=== PATIENT | male | born 1965 | race Hispanic/Latino ===

== ENCOUNTER 2024-06-06 17:52 | Inpatient (IN) | payer MEDICAID, OTHER, SELFPAY ==
[2024-06-06] VITALS (10 sets, daily range): BP systolic 117–149; BP diastolic 62–91; BMI 45.1; BMI 44.4
[2024-06-06] MEDS: NSS 1000 IV (12:19)
[2024-06-06] MEDS: TORADOL 30 MG IV (12:19)
--- NOTE | 2024-06-06 12:20 | ED.GENMED ---
History of Present Illness
General
Chief Complaint: Headache
Time Seen by Provider: 06/06/24 11:14
History of Present Illness
History of Present Illness:
[place] Language Line [id number] (Clair) used for interpretation
58 year old male with no significant PMH presenting to the ER for evaluation of headache, body shaking, coldness sensation, bilateral ear fullness, and fatigue x 1 week. Symptoms unchanged today but no improvement with tylenol. No documented fevers,
no known sick contacts, recent travel or abx. No history of similar. Family had started mentioning GI work up and that patient had endoscopy and colonoscopy in the past and were supposed to get labs done but patient never got these. Patient without
any GI specific concern today however
Past History
Past History
ED Past Medical History: None
ED Past Surgical History: None
Social History
Tobacco: Non-smoker
Alcohol: None
Drug: None
Personal:
Living: with family
Review of Systems
Review of Systems
All Other Systems: ROS reviewed and negative except as documented in HPI and ROS
Phy Exam
Physical Exam
Physical Exam:
GENERAL: Alert , in no apparent distress
EYE: clear conjunctiva
NECK: Supple
ENT: o/p clr, mmm. TM clear bilateral, small cerumen bilateral
CARDIAC: Regular rate and rhythm .
LUNGS: Clear breath sounds bilaterally, no acute respiratory distress, no wheezes/rales/rhonchi
ABDOMEN: Soft, somwhat distended, without focal tenderness, no r/g, no cvat
NEUROLOGICAL: Alert and oriented
SKIN: Warm and dry, skin intact.
MUSCULOSKELETAL: No edema, well perfused.
PSYCH: Normal and appropriate interaction.
Scores
Heart Failure Risk
Heart Failure Risk Score: Not Applicable
Heart Score for Chest Pain Patients
STEMI patient?: Not applicable
Withdrawal Assessment of Alcohol
Withdrawal Assessment Completed?: Not applicable
Course
Orders/Labs/Results
Orders:
Orders
06/06/24 Breakfast
NPO
Allow oral meds: Yes
Allow clear liquids: Sips of Clears
NPO with Ice Chips: Yes
06/06/24 11:39
0.9% Sodium Chloride 1000 ml [Nss] 1,000 ml IV BOLUS
Ketorolac [Toradol] 30 mg IV NOW STA
06/06/24 12:08
Alcohol Urgent
C-Reactive Protein Urgent
Comment: ADDON
Complete Blood Count/With Diff Urgent
Comprehensive Metabolic Panel Urgent
Lipase Urgent
Comment: ADD ON
Influenza A+B Rapid Molecular Urgent
BENEDICT Source: Nasal Swab
Specimen Description:
06/06/24 12:09
COVID-19 Antigen Urgent
Source: Nasal Swab
Lactic Acid Q4H
Comment: CANCEL 2nd LACTIC ACID IF 1st LACTIC ACID IS LESS THAN 2
Urinalysis Reflex To Culture Urgent
Date Specimen was Collected: 06/06/24
Time Specimen was Collected: 11:56
Urine Microscopic Reflex Cult Urgent
06/06/24 13:12
US Abdomen Complete/Upper Urgent
Comment:
Reason For Exam: elevated LFTs
06/06/24 Dinner
Cholesterol Lowering
At Your Request: Full Participation
Does patient need a safe tray?: No
Cholesterol Lowering: Sodium, 2 Gram
06/06/24 16:54
Add On- LAB Routine
Tests Added?: CRP
06/06/24 17:13
Stool Culture Routine
BENEDICT Source: Feces/Stool
Specimen Description:
06/06/24 17:19
Admit/Transfer Patient As Directed
Co-Sign Provider:
Level of Care: Inpatient admission
Assign to:: Telemetry
Physician / Group: Ilya/hospitalist
Diagnosis: RUQ/epigastric pain
Reason for Telemetry: Arrhythmia
Date to Stop Telemetry: 06/09/24
Time to Stop Telemetry: 11:00
Reason for Hospitalization: RUQ/epigastric pain
Expected length of stay greater than two midnights?: Yes
ELOS- Estimated Length of Stay in days: 5
I certify the patient meets the requirements for IP care: Yes
PRN Pain Medication Management As Directed
May give lesser potent ordered pain med per pt: Yes
preference::
Protocol:: Medication orders for pain may be administered in a
manner that supports deferring to patient preference
when the pt is:
- Requesting an ordered lesser potent pain medication.
Least to most potent pain medications are defined
as: acetaminophen < NSAID < tramadol < opioids
(morphine, oxycodone, hydromorphone).
- Requesting a lesser dose of the same medication IF
ORDERED.
- Requesting a less intrusive route of administration
if both routes are prescribed by the provider (PO <
IV).
06/06/24 17:20
Code Status As Directed
Resuscitation Status: Full Code
06/06/24 17:31
Urine Drug Abuse Screen Routine
Date Specimen was Collected: 06/06/24
Time Specimen was Collected: 17:24
Blood Culture Routine
BENEDICT Source: Blood/Venous
Specimen Description:
Blood Culture Routine
BENEDICT Source: Blood/Venous
Specimen Description:
06/06/24 17:37
Consult Gastroenterology [GASTROINTESTINAL CONSULT] Routine
Consulting Provider: Elysia Jimenez
Was physician already notified: Yes
Reason for consult: jaundice
Consult Surgery [SURGICAL CONSULT] Routine
Consulting Provider: Reinaldo Matias
Was physician already notified: Yes
Reason for consult: cholelithiasis
06/06/24 17:44
Add On- LAB Routine
Tests Added?: lipase
06/06/24 18:00
Piperacillin/Tazo 3.375 Gram [Zosyn] 3.375 gram in 50 ml IV Q6H
VANCOMYCIN Pharmacy to Dose [VANCOCIN Pharmacy to Dose] 1 each Pharmacy To Prepare [Call Pharmacy To Prepare] 0 ml IV PER PROTOCOL
06/06/24 19:20
0.9% Sodium Chloride [Nss (Preservative Free)] See Protocol IV PRN PRN
Bisacodyl [Dulcolax] 10 mg RECTAL [id number] PRN
Docusate W/Senna [Senokot-S] 1 tablet PO BIDPRN PRN
Enoxaparin Sodium [Lovenox] 40 mg SC QPM
FOLic ACID [Folvite] 1 mg 0.9% Sodium Chloride 50 ml [Nss] 50 ml IV DAILYPRN
Lorazepam [Ativan] 1 mg IV Q1HPRN PRN
Lorazepam [Ativan] 1 mg PO Q2HPRN PRN
Lorazepam [Ativan] 2 mg IV Q1HPRN PRN
Ondansetron Injectable [Zofran] 4 mg IV Q6HPRN PRN
Polyethylene Glycol Powder [Miralax] 17 grams PO DAILYPRN PRN
06/06/24 19:20
Case Management Consult Once
Case Management Consult: Other
Comment: Substance abuse counseling
DIETARY CONSULT Routine
Reason for Consult: Nutrition support, possible refeeding guidelines
Activity As Directed
Activity Level: As Tolerated
MSAS SCORE As Directed
MSAS Score 0-4: Repeat MSAS every 2 hours until 0-4 for three consecutive assessments, then every 4 hours x 48
hours.
MSAS Score 5-7: For MILD withdrawl symptoms. Repeat MSAS and RASS every 2 hours
MSAS Score 8-11: For MODERATE withdrawal symptoms. Repeat MSAS and RASS every 1 hour. Consider ICU or IMU
level of care.
MSAS Score > 11: For SEVERE withdrawal symptoms. Repeat MSAS and RASS every 1 hour. Notify provider, consider
ICU level of care.
MSAS Additional Instructions: If no improvement or no decrease in score from severe to moderate within 12
hours, consult psychiatry
MSAS Notify Provider: Notify provider if patient requires more than 10 mg of Lorazepam in eight hour period.
Vital Signs As Directed
Frequency: Per unit guidelines
DX Deep Vein Thrombosis Video Routine
06/06/24 20:00
Thiamine Injection 200 mg IV Q12
06/07/24 04:08
Complete Blood Count/With Diff IN AM
Comprehensive Metabolic Panel IN AM
Magnesium IN AM
06/07/24 08:00
FOLic ACID [Folvite] 1 mg PO DAILY
Pantoprazole [Protonix IV] 40 mg IV DAILY
06/08/24 06:32
Complete Blood Count/With Diff IN AM
Comprehensive Metabolic Panel IN AM
Magnesium IN AM
06/09/24 06:00
Complete Blood Count/With Diff IN AM
Comprehensive Metabolic Panel IN AM
Magnesium IN AM
06/09/24 11:00
DC Protocol for Telemetry ONCE
06/09/24 20:00
Thiamine HCl [Vitamin B1] 100 mg PO BID
06/10/24 06:00
Complete Blood Count/With Diff IN AM
Comprehensive Metabolic Panel IN AM
Magnesium IN AM
06/11/24 06:00
Complete Blood Count/With Diff IN AM
Comprehensive Metabolic Panel IN AM
Magnesium IN AM
06/12/24 06:00
Complete Blood Count/With Diff IN AM
Comprehensive Metabolic Panel IN AM
06/13/24 06:00
Complete Blood Count/With Diff IN AM
Comprehensive Metabolic Panel IN AM
Abnormal Lab Results
06/06/24 06/06/24
12:08 12:09
WBC 2.4 L* 10^3/uL
(4.8-10.8)
RBC 4.14 L 10^6/uL
(4.70-6.10)
Hgb 12.1 L g/dL
(13.0-18.0)
Hct 37.1 L %
(39.0-52.0)
MCHC 32.6 L g/dL
(33.0-37.0)
RDW 16.5 H %
(11.5-14.5)
Absolute Lymphs (auto) 0.5 L 10^3/uL
(1.2-3.4)
Immature Gran % 0.8 H %
(0-0.5)
Lymphocytes % 19.8 L %
(20.5-51.1)
Monocytes % 10.7 H %
(1.7-9.3)
Total Bilirubin 3.3 H mg/dl
(0.2-1.3)
AST 279 H U/L
(17-59)
ALT 68 H U/L
(0-50)
Alkaline Phosphatase 204 H U/L
(38-126)
Urine Ketones Trace A
(Negative)
Ur Occult Blood Reflex 4+ A
(Negative)
Urine Bilirubin 2+ A
(Negative)
Urine Urobilinogen 3+ A
(Neg - 1+)
Leukocyte Esterase Rfl Trace A
(Negative)
Urine RBC >100 A /HPF
(0-2)
Urine Albumin (Reflex) 2+ A
(Neg - Trace)
06/06/24 12:08
06/06/24 12:08
Vital Signs
Initial and Last Documented VS:
Initial Vital Signs
Temp Pulse Resp BP Pulse Ox
98.2 F 62 18 149/91 95
06/06/24 10:04 06/06/24 10:04 06/06/24 10:04 06/06/24 10:04 06/06/24 10:04
Last Documented Vital Signs
Temp Pulse Resp BP Pulse Ox
98.2 F 83 18 135/64 96
06/08/24 03:00 06/08/24 03:00 06/08/24 03:00 06/08/24 03:00 06/08/24 03:00
MDM/Problems Addressed
Differential Diagnosis Includes:
tension headache, migraine headache, viral syndrome, less concern for ICH
MDM/Problems Addressed:
58-year-old male presenting to the emergency department for evaluation of headache combined with a multitude of nonspecific systemic symptoms. Patient is hemodynamically stable and in no acute distress. No focal neurologic deficits noted. Will
check labs, urine and treat with fluids and Toradol. Reassessment following.
*Radiology
Radiology exam reviewed: radiology read reviewed
*Pulse Oximetry
Patient hypoxic: no
*Critical Care Note
Total Time (30-74mins, 75-104mins- exclusive of procedures): Not Applicable
Comment
Comment:
Patient's labs reveal a mild leukopenia and transaminitis with T. bili at 3.3. Patient without any belly pain presently. No labs to compare to and patient is unsure as to previous labs in the past. Ultrasound of the abdomen and pelvis ordered.
Disposition remains pending
Patient Management
Discussion with other providers: Hospitalist and Automatic Grinding Machine Operator
Escalation/DeEscalation of care consider admission/obs:
Patients work up significant for abnormal LFT. On reassessment patient does endorse some abdominal pain and he does have epigatric and RUQ pain. ? gallstones/cholangitis. Patient has neutropenia but unclear as to if this is baseline or acute. US
ordered which showed gallstones but no acute choley. Case d/w surgery as well as hospitalist team. Hospitalist to admit with surgery in consult.
ED Attending Note
-
Portions of this chart may have been created with voice recognition software.� Occasional wrong word or��sound alike� substitutions may have occurred due to the inherent limitations of voice recognition software.
Discharge Plan
Departure
Patient Disposition: Admit
Date of Disposition: 06/06/24
Time of Disposition: 16:43
Presentation/result/management discussed w/ accepting MD/DO: Hospitalist
Discharge Problem:
Cholelithiasis
Interventions
Interventions:
*Risk Screen - Suicide Last Done: 06/06/24 10:04
*General Assessment Last Done: 06/06/24 10:04
*Neglect/Abuse Screening Last Done: 06/06/24 10:04
ED- Fall Risk Assessment Last Done: 06/06/24 12:00
*ED COVID-19 Vaccine History Last Done: 06/06/24 10:04
*Nursing Disposition Last Done: 06/06/24 19:25
ED- Neurological Assessment Last Done: 06/06/24 12:00
Discharge Date and Time
Discharge Date/Time: 06/06/24 19:25
[2024-06-06 12:43] LABS: Urine Albumin 2+ (Neg - Trace); Urine Bilirubin 2+ (Negative); Urine Character Slightly Cloudy (Clear); Urine Color Yellow; Urine Glucose Negative (Negative); Urine Ketone Trace (Negative); Urine Leukocyte Trace (Negative); Urine Nitrite Negative (Negative); Urine Occult Blood 4+ (Negative); Urine Urobilinogen 3+ (Neg - 1+)
[2024-06-06 12:50] LABS: ALT (SGPT) 68 U/L (0-50); AST (SGOT) 279 U/L (17-59); Alkaline Phosphatase 204 U/L (38-126); Blood Urea Nitrogen 10 mg/dl (9-20); Calcium 8.7 mg/dl (8.4-10.2); Carbon Dioxide 27 mmol/L (22-30); Chloride 104 mmol/L (98-107); Glucose 98 mg/dl (70-99); Potassium 3.7 mmol/L (3.5-5.1); Sodium 143 mmol/L (135-145); Total Bilirubin 3.3 mg/dl (0.2-1.3); Total Protein 7.6 g/dl (6.3-8.2); eGFR > 60.00
[2024-06-06 12:50] LABS: Lactic Acid 1.3 mmol/L (0.7-2.0)
[2024-06-06 12:53] LABS: % Basophils 0.4 % (0-2); % Eosinophils 4.5 % (0-6); % Immature Granulocytes 0.8 % (0-0.5); % Lymphocytes 19.8 % (20.5-51.1); % Monocytes 10.7 % (1.7-9.3); % Neutrophils 63.8 % (42.2-75.2); Absolute Eosinophils 0.1 10^3/uL (0-0.7); Absolute Lymphocytes 0.5 10^3/uL (1.2-3.4); Absolute Monocytes 0.3 10^3/uL (0.1-0.6); Absolute Neutrophils 1.5 10^3/uL (1.4-6.5); Hematocrit 37.1 % (39.0-52.0); Hemoglobin 12.1 g/dL (13.0-18.0); Mean Corp Hgb Conc. 32.6 g/dL (33.0-37.0); Mean Corpuscular Hgb 29.2 pg (27.0-31.0); Mean Corpuscular Volume 89.6 fL (80.0-94.0); Nucleated Red Blood Cells % 0 % (-); Red Blood Cell Count 4.14 10^6/uL (4.70-6.10); Red Cell Dist. Width 16.5 % (11.5-14.5); White Blood Cell Count 2.4 10^3/uL (4.8-10.8)
[2024-06-06 12:56] LABS: COVID-19 Antigen Negative (Negative)
[2024-06-06 13:46] LABS: Urine Mucus Many
[2024-06-06 13:47] LABS: Urine Amorphous Seen
[2024-06-06 13:48] LABS: Urine Red Blood Cell >100 /HPF (0-2)
[2024-06-06 13:49] LABS: Urine Hyaline Cast 0-2 /LPF (0-2)
[2024-06-06 13:50] LABS: Urine White Cell 0-2 /HPF (0-5)
--- NOTE | 2024-06-06 16:46 | HPS.HSE ---
Family Physician
-
Family Physician: * NONE
Chief Complaint
-
Epigastric pain
Right upper quadrant abdominal pain
History of Present Illness
HPI: 58 year old male with no significant PMH, [place]an-speaking (language line used), p/w headache, body shaking, chills, fatigue and RUQ/epigastric Abd pain ongoing for about 1 week.
He took Tylenol without any improvement. He was brought in by his daughter for persistent symptoms.
Of note, patient lives in [place], and his daughter went to visit him there. He brought the patient to [place] due to him feeling unwell.
Patient endorsed to drinking alcohol about 3 shots. Last drink was 4 days ago.
Medical History
Past Medical History
Past Medical History: Reports None
Past Surgical History: Reports Other
Social History
Alcohol: Occasional
Living: Alone
Family History
Family History: Not pertinent
Allergies / Home Medications
Allergies reflects when Allergies were last updated in [facility].
Home Medications with original date entered in [facility]
Allergy/Medication List:
Allergies
Allergy/AdvReac Type Severity Reaction Status Date / Time
No Known Allergies Allergy Unverified 06/06/24 10:06
Home Medications
No Meds [No Current Medications] 06/06/24
Review of Systems
-
Constitutional: Reports Fatigue and Chills
Abdomen/GI: Reports See HPI and Abdominal Pain
Physical Exam
Vital Signs
Vital Signs
Temp Pulse Resp BP Pulse Ox
37.4 C 88 18 117/67 96
06/06/24 12:00 06/06/24 15:15 06/06/24 15:15 06/06/24 15:00 06/06/24 15:15
Physical Exam
General: Well Developed, Well Nourished, No Apparent Distress, Comfortable, Conversant and Morbidly Obese
HEENT: NormoCephalic, Moist mucous membranes and Atraumatic
Respiratory: Clear and Non Labored Respirations; No Accessory Resp Muscle Use
Cardiac: S1/S2 and Regular Rhythm; No Murmur or Rub
GI: Soft, Non Distended, Normal Bowel Sounds and Tender (Mild over epigastrium and RUQ); No Organomegaly
Rectal: Deferred by Provider
Musculoskeletal: No Clubbing, No Cyanosis and No Edema
Skin: No Rash
Neuro: Awake and Alert
Psych: Calm and Intact Judgment/Insight
Laboratory Results
-
06/06/24 12:08
06/06/24 12:08
Laboratory Results
Lactic Acid Cancelled 06/06/24 15:45
Total Bilirubin 3.3 mg/dl (0.2-1.3) H 06/06/24 12:08
AST 279 U/L (17-59) H 06/06/24 12:08
ALT 68 U/L (0-50) H 06/06/24 12:08
Alkaline Phosphatase 204 U/L (38-126) H 06/06/24 12:08
Data Reviewed
-
Ultrasound: Report Reviewed by me
Lab Data: Labs Reviewed by me
Impression/Plan
-
HPI: 58 year old male with no significant PMH, [place]an-speaking (language line used), p/w headache, body shaking, chills, fatigue and RUQ/epigastric Abd pain ongoing for about 1 week.
He took Tylenol without any improvement. He was brought in by his daughter for persistent symptoms.
Of note, patient lives in [place], and his daughter went to visit him there. He brought the patient to [place] due to him feeling unwell.
Patient endorsed to drinking alcohol about 3 shots. Last drink was 4 days ago.
A/P:
# General unwell with leukopenia, RUQ and epigastric pain
COVID/flu negative on admission
Check blood culture x 2
Abdominal ultrasound unrevealing, noted gallstones but no secondary findings to suggest acute cholecystitis.
Check MRCP
Cover with empiric antibiotics vancomycin/Zosyn for now
Check CRP
GS was consulted by ED
# Elevated LFT, AST > ALT
Abdominal ultrasound, liver morphology unrevealing
Check MRCP
Check alcohol level
Check UDS
Monitor LFT
Judicious use of Tylenol
# Hematuria noted on UA
Monitor
# Alcohol use
Unclear if today's abuse or not
Patient states last drink was 3 to 4 days prior to admission
covered with MSAS protocol
DVT ppx: Lovenox SQ
Full code
--- NOTE | 2024-06-06 17:21 | CON.GS ---
Addendum entered and electronically signed by Reinaldo Matias MD 06/07/24 11:37:
Patient seen and examined. Of note, speech and language tutor was used for this encounter.
Patient is a 58 yo M with a PMH of morbid obesity and recently diagnosed alcohol cirrhosis who presents with approximately 1 week of RUQ abdominal pain. He states that his symptoms began somewhat acutely approximately 1 week ago. He describes
discomfort in his epigastrium and RIGHT flank. No radiation to the back. Symptoms are worse with activities such as bending and twisting. No association with oral intake. He reports issues with fevers, chills, nausea, and vomiting over the past
3 to 4 days. He reports issues with pale stools, tea colored urine, and jaundice. He denies any prior attacks of similar discomfort. Of note, he has received the majority of his medical care in [place]. He reports that he has had liver issues
for approximately 1 year. Reports alcohol intake of several shots of alcohol a week. Last alcohol intake was approximately 1 week ago. Exact details on previous workup unknown. He has had a colonoscopy and endoscopy.
Gen: NAD
Abd: soft, tender in epigastrium, distended/obese, unable to palpate liver, non-peritoneal
Labs, US, and MRI imaging reviewed.
Patient is a 58 yo M p/w alcoholic cirrhosis
Clinical history as well as imaging including US and MRI are more consistent with a diagnosis of cirrhosis and less likely cholecystitis. No evidence of gallbladder wall thickening or pericholecystic fluid, single impacted stone or polyp identified
on MRI. No association with oral intake. Workup notable for cirrhosis, which is further supported by his bilirubin, LFT abnormalities, and thrombocytopenia. No plans for cholecystectomy at this time. Recommend further work-up and management by
GI for his cirrhosis. If cholecystectomy is deemed necessary in the future this would be best performed at a tertiary care center. All questions answered.
-- No plans for cholecystectomy, if deemed necessary in the future this is best performed at a tertiary care center
-- Further work-up and management per GI
-- Please call with any questions or concerns
Original Note:
Medical History
-
Chief Complaint: chills/shakes/jaundice
History of Present Illness:
Mr. Newberry is a 58 yo male with PMH of esophageal varices undergoing liver work up in [facility] where he normally resides and etoh use of 3-4 shots several times a week who is visiting family here in [place] but has been reportedly ill for the past 3-4
days with shakes, chills, nausea and vomiting. He initially did not report abdominal pain when presenting to the ED but upon reflection, he does note that he has had RUQ pain for the past few days with tenderness noted on exam to light palpation. He
complains of headaches and body aches well. The RUQ is tender to light palpation without rebound, rigidity or guarding. He notes recent yellowing of the skin and eyes over the past 2 weeks. Today, he noted that his urine became quite dark like
[employer]. For the past 3 days, he has also been passing multiple soft to loose stools. He has been taking Tylenol for pain and subjective fevers at home without much benefit.
Past Medical History
Past Medical History: Other (Recent endo/colo with Esophageal varices noted )
Past Surgical History: None
Social History
Tobacco: Non-Smoker
Alcohol: Occasional (3-4 shots several times a week)
Living: Other (Lives in [place])
Family History
Family History: Reviewed & Not Pertinent
Allergies / Home Medications
Allergy/AdvReac Type Severity Reaction Status Date / Time
No Known Allergies Allergy Unverified 06/06/24 10:06
�Medication �Instructions �Recorded �Confirmed �Type
No Meds [No Current Medications] 06/06/24 06/06/24 History
Review of Systems
-
Unable to obtain full review of systems at this time due to: Language Barrier (communication arts lecturer utilized through language line: Servando #[id number])
History Source: Patient and Family
All other systems: Negative unless noted
A 10 point review of systems was completed, and was negative except as per HPI.
Physical Exam
Vital Signs
Temp Pulse Resp BP Pulse Ox
99.4 F 88 18 117/67 96
06/06/24 12:00 06/06/24 15:15 06/06/24 15:15 06/06/24 15:00 06/06/24 15:15
Lab Results
06/06/24 12:08
06/06/24 12:08
WBC 2.4 10^3/uL (4.8-10.8) L* 06/06/24 12:08
Hgb 12.1 g/dL (13.0-18.0) L 06/06/24 12:08
Hct 37.1 % (39.0-52.0) L 06/06/24 12:08
Plt Count 10^3/uL (130-400) 06/06/24 12:08
Abs Immat Gran (auto) 0.0 10^3/uL (0-0.05) 06/06/24 12:08
Neutrophils % 63.8 % (42.2-75.2) 06/06/24 12:08
Physical Exam
General: Well Developed and Well Nourished
HEENT: Scleral Icterus
Respiratory: Non Labored Respirations
GI: Soft, Non Distended, Tender (RUQ) and Obese
Skin: Jaundice
Neuro: Awake, Alert and AO x 3
Psych: Calm
Data Reviewed
-
Ultrasound: Image Personally Visualized and interpreted, Report Reviewed by me, Discussed with Physician, Discussed with Patient and Discussed with Family
Labs: Labs Reviewed by me, Discussed with Physician, Discussed with Patient and Discussed with Family
Assessment / Plan
-
58 yo male with a h/o esophageal varices undergoing liver work up in [place] presenting with subjective fevers with n/v and head and body aches for the past 3-4 days. LFT's elevated with jaundice/scleral icterus noted. Leukopenic. Afebrile thus far with
temp of 99.4 (recently took tylenol INSTRUCTOR CREELER). US imaging reviewed with gallstones present although not suggestive of ACC. Suspect possible cholangitis/passing stone given RUQ pain with jaundice and reported history.
--Medical management as per primary team, discussed plan with hospitalist
--Blood cx and lactic acid being sent from ED
--Start ABX with IV Zosyn
--Would recommend MRCP to better evaluate
--Trend labs including LFT's, add on lipase to recent labs in ED
--Consult placed to GI to follow with us
--NPO for testing
--Analgesics/antiemetics as needed
Will likely need cholecystectomy timing TBD pending MRCP findings as he may require ERCP first
[2024-06-06 17:37] LABS: Alcohol 14 mg/dl
[2024-06-06 17:58] LABS: Lipase 211 U/L (23-300)
[2024-06-06 18:00] LABS: Amphetamines Negative (Negative); Barbiturates Negative (Negative); Benzodiazepines Negative (Negative); Buprenorphine Negative (Negative); Cocaine Negative (Negative); Marijuana Negative (Negative); Methadone Negative (Negative); Methamphetamines Negative (Negative); Opiates Negative (Negative); Phencyclidine Negative (Negative); Tricyclic Antidepressants Negative (Negative)
[2024-06-06] MEDS: ZOSYN 50 IV (18:31)
[2024-06-06] MEDS: VANCOCIN 540 MG IV (19:02)
--- NOTE | 2024-06-06 19:52 | PHA.VAN.IN ---
Assessment
- Assessment
Renal Function: Unknown baseline
Concomitant Antimicrobials: ZOSYN
- Previous Dosing Experience
Previous Regimen: NONE
AUC Dosing Plan
- Dosing Variables
Dosing Weight (kg): 104.7
Dosing CrCl (ml/min): 100
Vd coefficient (L/kg): 0.5
- Empiric Dosing
Initial / Loading Dose: 2GM
Maintenance Regimen: 1250MG IV Q12H
Estimated AUC (mcg*h/mL): 582
Estimated Peak (mcg*h/mL): 36.8
Estimated Trough (mcg/ml): 14.7
Estimated Half Life (H): 7.9
Pharmacokinetics Vancomycin I
- -
Patient Age: 58
Patient Sex: Male
Vancomycin Day #: 1
Indication: Other (ACUTE CHOLECYSTITS)
Requesting Provider: GOPAL
Height / Weight:
Height 5 ft
Actual Weight 104.7 kg
- Vital Signs / Lab Results
Temp Pulse Resp BP Pulse Ox
99.4 F 102 23 130/89 96
06/06/24 12:00 06/06/24 19:01 06/06/24 19:01 06/06/24 18:00 06/06/24 18:45
Lab Results - Hematology
06/06/24
12:08
WBC 2.4 L*
Lab Results - Chemistry
06/06/24
12:08
BUN 10
Creatinine 0.8
Albumin 4.0
06/06/24 06/06/24
12:09 15:45
Lactic Acid 1.3 Cancelled
Lab Results - Urine
06/06/24
12:09
Urine Nitrite (Reflex) Negative
Leukocyte Esterase Rfl Trace A
Urine WBC (Reflex) 0-2
Ur Squamous Epith Cells 3-5
Microbiology Results
06/06/24 12:08 Influenza Types A & B (STEFANIE) - Final
Nasal Swab Negative for Influenza A & B, NAAT
Negative results must be combined with clinical observations
and patient history.
Nucleic Acid Amplification test (NAAT)performed on the
[id number] platform.
[2024-06-06] MEDS: THIAMINE INJECTION 200 MG IV (20:47)
[2024-06-06] MEDS: LOVENOX 40 MG SC (20:48)
--- NOTE | 2024-06-06 21:15 | PTCARENOTE ---
Received patient from ED via stretcher. Patient ambulated from stretcher to bed with minimal assistance. Patient is Kenyan speaking, daughter at bedside helping with admission questions. MSAS initiated per orders. Reports 04/02 RUQ abdominal and
epigastric pain, WIND TURBINE SHEET METAL WORKER made aware - orders for PRN morphine. Oriented patient to room and placed call milton within reach.
[2024-06-06] MEDS: MORPHINE SULFATE 2 MG IV (21:21)
[2024-06-07] MEDS: ZOSYN 50 IV ×5 (00:24→23:39)
[2024-06-07 03:28] VITALS: BP 131/78
[2024-06-07] MEDS: VANCOCIN 275 MG IV ×2 (05:55→18:23)
[2024-06-07 06:34] LABS: % Basophils 0.4 % (0-2); % Eosinophils 3.7 % (0-6); % Immature Granulocytes 0.4 % (0-0.5); % Lymphocytes 15.8 % (20.5-51.1); % Monocytes 12.9 % (1.7-9.3); % Neutrophils 66.8 % (42.2-75.2); Absolute Eosinophils 0.1 10^3/uL (0-0.7); Absolute Lymphocytes 0.4 10^3/uL (1.2-3.4); Absolute Monocytes 0.3 10^3/uL (0.1-0.6); Absolute Neutrophils 1.6 10^3/uL (1.4-6.5); Hematocrit 33.5 % (39.0-52.0); Hemoglobin 10.9 g/dL (13.0-18.0); Mean Corp Hgb Conc. 32.5 g/dL (33.0-37.0); Mean Corpuscular Hgb 30.2 pg (27.0-31.0); Mean Corpuscular Volume 92.8 fL (80.0-94.0); Nucleated Red Blood Cells % 0 % (-); Red Blood Cell Count 3.61 10^6/uL (4.70-6.10); Red Cell Dist. Width 16.4 % (11.5-14.5); White Blood Cell Count 2.4 10^3/uL (4.8-10.8)
[2024-06-07 06:44] LABS: ALT (SGPT) 54 U/L (0-50); AST (SGOT) 204 U/L (17-59); Albumin 3.4 g/dl (3.5-5.0); Alkaline Phosphatase 176 U/L (38-126); Blood Urea Nitrogen 19 mg/dl (9-20); Calcium 8.1 mg/dl (8.4-10.2); Carbon Dioxide 23 mmol/L (22-30); Chloride 108 mmol/L (98-107); Estimated Creatinine Clearance 81 ml/min; Glucose 82 mg/dl (70-99); Magnesium 1.6 mg/dl (1.6-2.3); Potassium 3.5 mmol/L (3.5-5.1); Sodium 143 mmol/L (135-145); Total Bilirubin 3.8 mg/dl (0.2-1.3); Total Protein 6.7 g/dl (6.3-8.2); eGFR > 60.00
[2024-06-07 06:53] VITALS: BP 158/96
[2024-06-07 08:22] LABS: Mean Platelet Volume 10.9 fL (7.4-10.4); Platelet Count 51 10^3/uL (130-400)
--- NOTE | 2024-06-07 08:36 | PHA.VAN.FU ---
Vancomycin Assessment / Plan
- Assessment
Renal Function: Stable
WBC's are: Stable (leukopenic)
In the past 24 hrs, patient has been: Afebrile
Concomitant Antimicrobials: piperacillin/tazobactam
- Dosing Plan
Continue: Vanc 1250mg Q12H
- Monitoring Plan
No level(s) ordered at this time: follow renal function trend, if SCR increases, may require dose reduction
- Follow Up
Pharmacy will continue to follow.
Vancomycin Follow UP
- -
Patient Age: 58
Patient Sex: Male
Vancomycin Day #: 2
Indication: Other
Requesting Provider: Dr. Caraballo
Pertinent Antimicrobial Allergies:
NKDA
Height / Weight:
Height 5 ft
Actual Weight 103.221 kg
Pertinent Past Medical History: BMI ~44
- Vital Signs / Lab Results
Temp Pulse Resp BP Pulse Ox
98.5 F 87 20 131/78 96
06/07/24 03:28 06/07/24 03:28 06/07/24 03:28 06/07/24 03:28 06/07/24 03:28
Lab Results - Hematology
06/06/24 06/07/24
12:08 04:08
WBC 2.4 L* 2.4 L*
Lab Results - Chemistry
06/06/24 06/07/24
12:08 04:08
BUN 10 19
Creatinine 0.8 1.0
Estimated Creat Clear 81
Albumin 4.0 3.4 L
06/06/24 06/06/24
12:09 15:45
Lactic Acid 1.3 Cancelled
Lab Results - Urine
06/06/24
12:09
Urine Nitrite (Reflex) Negative
Leukocyte Esterase Rfl Trace A
Ur Squamous Epith Cells 3-5
Microbiology Results
06/06/24 17:31 Blood Culture - Preliminary
Blood/Venous Positive culture in progress
Gram Stain - Preliminary
06/06/24 12:08 Influenza Types A & B (STEFANIE) - Final
Nasal Swab Negative for Influenza A & B, NAAT
Negative results must be combined with clinical observations
and patient history.
Nucleic Acid Amplification test (NAAT)performed on the
[employer] platform.
--- NOTE | 2024-06-07 09:36 | CON.GI ---
Addendum entered and electronically signed by Elysia Gandhi Do, MD 06/07/24 13:00:
I saw and examined the patient.
The BACKUP ADMINISTRATIVE COORDINATOR's note was reviewed and I agree with the note.
Comment: Maico is a 58yo M Lithuanian speaking with h/o ETOH use who was brought to after visiting his daughter from [place] where he lives. He had been admitted with esophageal varices there and not doing well living on his own. He does drink ETOH
last about 3 days ago. He does not use chronic meds at home. Not clear if there is FH of hereditary liver issues. Vitals reviewed. Exam with distended obese abdomen mild scleral icterus. Labs reviewed. +BC with GPC. MRI with cirrhosis portal
HTN and no significant ascites. No choledocholithiasis, 1.1cm GB polyp, trace bilateral pleural effusion.
Impression
- Decompensated cirrhosis
Unclear cause suspect MASH or ETOH etiology
- Pancytopenia
- + BC with GPC
Unclear if from contaminant vs clear source
- ETOH abuse
- H/o esophageal varices s/p banding in [place]
- GB polyps
- Trace bilateral effusions
Recommendations
- ETOH cessation
- Check viral hepatitis serologies. Hereditary liver workup can be done OP basis
- MRI without choledocholithiasis
- Repeat BC today. Only 1 out of 2 positive yesterday. C/w abx
- CXR and urine culture pending collection
- Check INR to calculate MELD score.
- Gave pt and daughter names of 3 tester sound in [facility]. One of whom is welsh speaking
Will follow with you.
Original Note:
Consultation
-
Date/Time Consultation Requested: 06/06/24 1730
Date/Time Consultation Performed: 06/07/24 1045
Requesting Provider: LENNY Hall
Performing Provider: LENNY Moeller, Elysia Jimenez MD
Reason for Consultation: increased LFT's, pancytopenia
Medical History
Chief Complaint / HPI
Chief Complaint: fatigue, shakes
History of Present Illness:
Pt is a 58yo with hx cirrhosis possible ETOH related, esophageal varices with liver work up in [place] noted with shakes, chills, vomiting, abdominal pain for a few days and brought to ER. On admission US with gallstones, moderate splenomegaly
with normal liver. MRI with changes of cirrhosis with portal HTN and recanalization fo umbilical vein with splenomegaly. No ascites seen. likely GB polyp, renal cyst, trace pleural effusion. Labs notable for pancytopenia with WBC 2.4, hbg drop
to 10.9, and platelets 51,000. chemistry with albumin 3.4 with bili 3.8, AST 204, ALT 54, alk phos 176 and blood cx gram + cocci.
In review with patient and daughter with language line, he states he was diagnosed with cirrhosis about 1 year ago. He was seen in [place] without daughter present and daughter was unclear of his current medical issues as she lives here in
[place]. He has has 3 endoscopies with banding last in February and colonoscopy that he recall as normal. He did not recall further serology liver work up in past and states he was only seen in hospital but not outpatient office but due follow up
in 2 months with GI and hepatology. He admits to alcohol use about 3 beers at a time denies heavier use in past and last use 1 week ago. He denies hx hepatitis or family hx liver issues. He current admits to some abdominal pain epigastric and
RLQ and some recent dark urine with periods of nausea and vomiting. No Tylenol use. He denies diarrhea, constipation, or rectal bleeding. He has been seen by general surgery with no plan for kenyon at this time.
.
Past Medical History
Past Medical History: Other (esophageal varcies with EGD and banding x3 in [place] , ETOH abuse , gallstones )
Social History
Tobacco: Former Smoker (quit years ago)
Alcohol: Occasional (3 drinks several days per week. last 1 week ago)
Drug: None
Living: Alone
Family History
Family History: Other (no family hx cirrhosis or GI problems)
Allergies / Home Medications
Allergy/AdvReac Type Severity Reaction Status Date / Time
No Known Allergies Allergy Unverified 06/06/24 10:06
�Medication �Instructions �Recorded
No Meds [No Current Medications] 06/06/24
Review of Systems
-
History Source: Patient and Family
Constitutional: Reports No Symptoms and Fatigue
EENT: Reports No Symptoms
Respiratory: Reports No Symptoms
Cardiac: Reports No Symptoms
Abdomen/GI: Reports Abdominal Pain, Nausea and Vomiting (small amount of bile )
: Reports No Symptoms
Musculoskeletal: Reports No Symptoms
Neurological: Reports Dizzy and Weakness
Endocrine: Reports No Symptoms
Hematologic/Lymphatic: Reports No Symptoms
Vital Signs
Temp Pulse Resp BP Pulse Ox
98.2 F 98 22 158/96 97
06/07/24 06:53 06/07/24 06:53 06/07/24 06:53 06/07/24 06:53 06/07/24 06:53
Physical Exam
Exam
General: Well Nourished and No Apparent Distress
HEENT: Normocephalic and Other (slight jaundice )
Respiratory: Clear
Cardiac: Regular Rhythm
GI: Soft, Tender (minimal upper tenderness) and Distended (mild )
Musculoskeletal: No Clubbing and No Cyanosis
Skin: Warm and Dry
Neuro: Awake, Alert, AO x 3 and Other (appropriate with use of language line)
Psych: Calm
Results
WBC 2.4 10^3/uL (4.8-10.8) L* 06/07/24 04:08
Hgb 10.9 g/dL (13.0-18.0) L 06/07/24 04:08
Hct 33.5 % (39.0-52.0) L 06/07/24 04:08
MCV 92.8 fL (80.0-94.0) 06/07/24 04:08
Plt Count 51 10^3/uL (130-400) L 06/07/24 04:08
Absolute Neuts (auto) 1.6 10^3/uL (1.4-6.5) 06/07/24 04:08
Sodium 143 mmol/L (135-145) 06/07/24 04:08
Potassium 3.5 mmol/L (3.5-5.1) 06/07/24 04:08
Chloride 108 mmol/L (98-107) H 06/07/24 04:08
Carbon Dioxide 23 mmol/L (22-30) 06/07/24 04:08
BUN 19 mg/dl (9-20) 06/07/24 04:08
Creatinine 1.0 mg/dL (0.7-1.3) 06/07/24 04:08
Calcium 8.1 mg/dl (8.4-10.2) L 06/07/24 04:08
Total Bilirubin 3.8 mg/dl (0.2-1.3) H 06/07/24 04:08
AST 204 U/L (17-59) H 06/07/24 04:08
ALT 54 U/L (0-50) H 06/07/24 04:08
Alkaline Phosphatase 176 U/L (38-126) H 06/07/24 04:08
Lipase 211 U/L (23-300) 06/06/24 12:08
Diagnostic Image Results:
06/06/24 US abdomen
Gallstones. No secondary findings to suggest acute cholecystitis.
Moderate splenomegaly.
Nonvisualization of proximal IVC and abdominal aorta.
06/07/24 MR Abdomen W/o & W Contrast
Cirrhotic morphology with evidence of portal hypertension including recanalization of the umbilical vein and splenomegaly. No suspicious arterially hyperenhancing lesions within the liver. No significant ascites. Recommend continued surveillance
with either ultrasound or multiphasic CT/MRI.
Cholelithiasis without evidence of choledocholithiasis. The common bile duct measures 4 mm.
There is a 1.1 cm enhancing focus along the posterior/superior wall of the body of the gallbladder, likely a polyp.
9 mm cyst with thin internal septation in the lower pole the left kidney consistent with Bosniak II.
Trace bilateral pleural effusions.
Prior GI Procedures:
EGD: last February with hx banding x 3
Colonoscopy: pt recalls as normal
Assessment / Plan
-
Pt is a 58yo with hx cirrhosis possible ETOH related, esophageal varices with banding x 3 work up in [place], noted with shakes, chills, vomiting, abdominal pain for a few days and brought to ER. On admission US with gallstones, moderate
splenomegaly with normal liver. MRI with changes of cirrhosis with portal HTN and recanalization fo umbilical vein with splenomegaly. No ascites seen. likely GB polyp, renal cyst, trace pleural effusion. Labs notable for pancytopenia with WBC
2.4, hbg drop to 10.9, and platelets 51,000. chemistry with albumin 3.4 with bili 3.8, AST 204, ALT 54, alk phos 176 and blood cx gram + cocci. tox screen neg except 14 ETOH level.
-fatigue
-chills
-abdominal pain
-cirrhosis of liver with hx EV with banding in [place] x 3 last in February, portal HTN per MRI, no hx HE or ascites
-gram + cocci on blood culture
-pancytopenia
-hypoalbuminemia
-gallstones
PLAN:
Etiology of symptoms with concern for underlying cirrhosis with decompensation but need to rule out infection with c/o chills
- blood cx x 1 with gram + cocci, will add second culture, Urine cx and CXR, per MRI no ascites to tap
appreciate surgical recommendation no plan for kenyon at this time
trend LFT's -- add INR to calculate MELD
obtain hepatitis panel and will need OP serology work up
Pt is scheduled with hepatology in [place] and also provided family with hepatology number from [facility] Dr. Cooper(welsh speaking) , Dr. Vines at [place] and Dr. Campos at [place] will need OP follow up
discussed ETOH abstinence and avoidance of liver toxic medications
US and MRI as noted
I educated daughter on cirrhosis and progression of disease and answered all questions
-
-
Thank you for consultation and allowing me to participate in the patient's care. Please call the validation analyst GI physician during the after hours with any questions or concerns.
[2024-06-07] MEDS: KCL 40 MEQ PO (10:16)
[2024-06-07] MEDS: NSS (PRESERVATIVE FREE) 10 ML IV (10:17)
[2024-06-07] MEDS: PROTONIX IV 40 MG IV (10:17)
[2024-06-07] MEDS: THIAMINE INJECTION 200 MG IV ×2 (10:17→21:02)
[2024-06-07] MEDS: FOLVITE 1 MG PO (10:17)
[2024-06-07] MEDS: MAGNESIUM SULFATE 50 IV (10:18)
--- NOTE | 2024-06-07 10:31 | W.PN.HOSP.TC ---
Today's Communication/Plan
-
see A/P
Assessment / Plan
Assessment / Plan
HPI: 58 year old male with no significant PMH, Liberian-speaking (language line used), p/w headache, body shaking, chills, fatigue and RUQ/epigastric Abd pain ongoing for about 1 week.
He took Tylenol without any improvement. He was brought in by his daughter for persistent symptoms.
Of note, patient lives in [facility], and his daughter went to visit him there. He brought the patient to ID due to him feeling unwell.
Patient endorsed to drinking alcohol about 3 shots. Last drink was 4 days ago.
A/P:
# General unwell/ chills with leukopenia, RUQ and epigastric pain
COVID/flu negative on admission
Follow blood culture, prelim positive
Abdominal ultrasound unrevealing, noted gallstones but no secondary findings to suggest acute cholecystitis.
Check MRCP
Cont empiric antibiotics vancomycin/Zosyn
GS and GI on board
# Elevated LFT, AST > ALT
Abdominal ultrasound, liver morphology unrevealing
Check MRCP
alcohol level and UDS negative
Monitor LFT
Judicious use of Tylenol
# Hematuria noted on UA
Monitor
# Alcohol use
Unclear with abuse or not
Patient states last drink was 3 to 4 days prior to admission
covered with MSAS protocol
DVT ppx: Lovenox SQ
Full code
DW RN
DW daughter at bedside
Anticipated Discharge: > 48 hours
Subjective/Interval History
-
Date of Service: June 07, 2024
Objective Data
-
Labs:
Laboratory Results
06/07/24
04:08
WBC 2.4 L*
Hgb 10.9 L
Hct 33.5 L
Plt Count 51 L
Sodium 143
Potassium 3.5
Chloride 108 H
Carbon Dioxide 23
BUN 19
Creatinine 1.0
Glucose 82
Calcium 8.1 L
Total Bilirubin 3.8 H
AST 204 H
ALT 54 H
Alkaline Phosphatase 176 H
Vital Signs:
Vital Signs
Temp Pulse Resp BP Pulse Ox
36.8 C 98 22 158/96 97
06/07/24 06:53 06/07/24 06:53 06/07/24 06:53 06/07/24 06:53 06/07/24 06:53
I&O
06/06/24 06/07/24 06/08/24
06:59 06:59 06:59
Intake Total 480 / 480
Balance 480 / 480
Review of Systems
-
Abdomen/GI: Reports Abdominal Pain (improved )
Physical Exam
-
General: Well Developed, Well Nourished, No Apparent Distress, Comfortable, Conversant and Morbidly Obese; Negative Respiratory Distress
HEENT: Normocephalic, Atraumatic, Nose Appears Normal and Ears Appear Normal; Negative Oxygen
Respiratory: Clear to Auscultation and Non Labored Respirations; Negative Accessory Resp Muscle Use
Cardiac: Regular Rhythm and S1/S2
GI: Soft, Normal Bowel Sounds and Tender (mild RUQ)
Skin: Warm and Dry
Neuro: Awake, Alert, Oriented and AO x 3
Psych: Calm and Intact Judgement/Insight
Data Reviewed
-
Ultrasound: Report Reviewed by me
Labs: Labs Reviewed by me
[2024-06-07 11:05] VITALS: BP 124/84
[2024-06-07 11:24] LABS: Direct Bilirubin 2.2 mg/dl (0.0-0.4)
[2024-06-07 12:33] VITALS: BMI 44.4
[2024-06-07 12:35] LABS: INR 1.33; PT 16.3 Sec (11.4-14.6)
[2024-06-07 13:55] LABS: Hepatitis B Surface Antibody Negative; Hepatitis C Antibody Negative (Negative)
[2024-06-07 14:00] LABS: Hepatitis A Antibody, Total Positive (Negative)
[2024-06-07 14:41] LABS: Hepatitis B Surface Antigen Negative (Negative)
[2024-06-07 14:50] LABS: Hepatitis A IgM Antibody Negative (Negative); Hepatitis B Core Ab, IgM Negative (Negative)
[2024-06-07 15:19] VITALS: BP 135/81
--- NOTE | 2024-06-07 16:23 | CM ---
Alert awake oriented patient who lives alone in [facility]. He speaks French his dgt Yulia is her and she translates. He lives alone with 4 steps to enter apartment. Dgt provided CM with insurance card . Information given to Admission Judy
from [facility].As per [facility] insurance is only good in [place], [place].Offered BCares for alcohol use. [facility].Dgt said pt has no problem paying rent affording food or utilities. She said he will be staying with her for a
while. On insurance card # is [id number] said he does not have a MD but it says DR Jessica Noel.. [facility] gave her [facility] info.
No VN hx / No SNF history
Pharmacy [facility]
PCP see above
PLAN Home with dgt
[2024-06-07 19:42] VITALS: BP 136/96
[2024-06-07] MEDS: MORPHINE SULFATE 2 MG IV (21:01)
[2024-06-07] MEDS: FLUSH (NSS) 3 FLUSH IV (21:02)
[2024-06-07 22:02] LABS: Troponin I < 0.012 ng/ml
[2024-06-07 23:00] VITALS: BP 131/86
[2024-06-07] MEDS: FLUSH (NSS) 2 FLUSH IV (23:40)
--- NOTE | 2024-06-08 00:38 | PTCARENOTE ---
Patient c/o CP 9/10 describes aspinching and points over heart. EKG shows NSR. Reviewed by MOLD OPERATOR, covering house, VSS 136/78 BP 93HR 97% room air. Morphine per prn order with relief. Troponin negative.
[2024-06-08 03:00] VITALS: BP 135/64
--- NOTE | 2024-06-08 04:04 | DOWNTIME ---
There was a [employer] Client Fabric Worker Downtime on 06/08/2024 from 0100 to 06/08/2024 at 0355. Downtime documentation of patient's care, including medication administrations, has been reconciled in the electronic record per guidelines. Refer to the
patient's paper chart under the miscellaneous tab to see printed paper medication records and downtime forms.
[2024-06-08] MEDS: ZOSYN 50 IV ×2 (05:22→13:24)
[2024-06-08] MEDS: FLUSH (NSS) 2 FLUSH IV ×2 (05:23→05:53)
[2024-06-08] MEDS: VANCOCIN 275 MG IV ×2 (05:52→18:06)
[2024-06-08 06:00] VITALS: BMI 44.7
[2024-06-08 06:50] LABS: INR 1.27; PT 15.8 Sec (11.4-14.6)
[2024-06-08 06:51] LABS: % Basophils 0.7 % (0-2); % Eosinophils 5.3 % (0-6); % Immature Granulocytes 0.7 % (0-0.5); % Lymphocytes 17.6 % (20.5-51.1); % Neutrophils 62.7 % (42.2-75.2); Absolute Eosinophils 0.2 10^3/uL (0-0.7); Absolute Lymphocytes 0.5 10^3/uL (1.2-3.4); Absolute Monocytes 0.4 10^3/uL (0.1-0.6); Absolute Neutrophils 1.8 10^3/uL (1.4-6.5); Hematocrit 33.6 % (39.0-52.0); Hemoglobin 10.9 g/dL (13.0-18.0); Mean Corp Hgb Conc. 32.4 g/dL (33.0-37.0); Mean Corpuscular Hgb 30.4 pg (27.0-31.0); Mean Corpuscular Volume 93.6 fL (80.0-94.0); Nucleated Red Blood Cells % 0 % (-); Platelet Count 59 10^3/uL (130-400); Red Blood Cell Count 3.59 10^6/uL (4.70-6.10); Red Cell Dist. Width 16.5 % (11.5-14.5); White Blood Cell Count 2.8 10^3/uL (4.8-10.8)
[2024-06-08 07:06] LABS: ALT (SGPT) 44 U/L (0-50); AST (SGOT) 152 U/L (17-59); Albumin 3.3 g/dl (3.5-5.0); Alkaline Phosphatase 181 U/L (38-126); Blood Urea Nitrogen 15 mg/dl (9-20); Calcium 8.1 mg/dl (8.4-10.2); Carbon Dioxide 25 mmol/L (22-30); Chloride 106 mmol/L (98-107); Estimated Creatinine Clearance 74 ml/min; Glucose 95 mg/dl (70-99); Potassium 3.7 mmol/L (3.5-5.1); Sodium 142 mmol/L (135-145); Total Bilirubin 3.8 mg/dl (0.2-1.3); Total Protein 6.7 g/dl (6.3-8.2); eGFR > 60.00
[2024-06-08 07:25] VITALS: BP 154/94
[2024-06-08] MEDS: PROTONIX IV 40 MG IV (08:38)
[2024-06-08] MEDS: FOLVITE 1 MG PO (08:38)
[2024-06-08] MEDS: THIAMINE INJECTION 200 MG IV ×2 (08:39→20:29)
[2024-06-08] MEDS: NSS (PRESERVATIVE FREE) 10 ML IV (08:39)
--- NOTE | 2024-06-08 10:05 | CM ---
[facility] insurance is only active in hospitals in [facility].
Michael at [facility] spoke with pt concerning alcohol abuse.
Pt will be living with dgt locally till he feels better.
Vietnamese speaking Dgt understands more [place].
PLAN :Home with family support
--- NOTE | 2024-06-08 10:11 | W.PN.HOSP.TC ---
Today's Communication/Plan
-
see A/P
Assessment / Plan
Assessment / Plan
HPI: 58 year old male with no significant PMH, Pashto-speaking (language line used), p/w headache, body shaking, chills, fatigue and RUQ/epigastric Abd pain ongoing for about 1 week.
He took Tylenol without any improvement. He was brought in by his daughter for persistent symptoms.
Of note, patient lives in [facility], and his daughter went to visit him there. He brought the patient to [place] due to him feeling unwell.
Patient endorsed to drinking alcohol about 3 shots. Last drink was 4 days ago.
A/P:
# General unwell/ chills with leukopenia, RUQ and epigastric pain
COVID/flu negative on admission
Follow blood culture for S aureus, follow S/S
Follow blood culture until clearance
Abdominal ultrasound unrevealing, noted gallstones but no secondary findings to suggest acute cholecystitis.
MRCP also without choledocholithiasis, noted liver cirrhosis with portal hypertension (recanalization of the umbilical vein and splenomegaly).
Cont empiric antibiotics vancomycin/Zosyn
ID CS
GS and GI on board
# Elevated LFT, AST > ALT, with liver cirrhosis
Abdominal ultrasound, liver morphology unrevealing
MRCP also without choledocholithiasis, noted liver cirrhosis with portal hypertension (recanalization of the umbilical vein and splenomegaly).
alcohol level and UDS negative
Monitor LFT, improving
Judicious use of Tylenol
Recc ETOH cessation
Follow viral hepatitis serologies.
Appreciate GI input, provided pt and daughter names of 3 candy spreader in [facility]. One of whom is Pashto speaking
# Hematuria noted on UA
Monitor
# Alcohol use/ likely acute with liver cirrhosis
Patient states last drink was 3 to 4 days prior to admission
covered with MSAS protocol
DVT ppx: Lovenox SQ
Full code
DW RN
DW daughter at bedside
Anticipated Discharge: > 48 hours
Subjective/Interval History
-
Date of Service: June 08, 2024
Objective Data
-
Labs:
Laboratory Results
06/08/24
06:32
WBC 2.8 L
Hgb 10.9 L
Hct 33.6 L
Plt Count 59 L
PT 15.8 H
INR 1.27
Sodium 142
Potassium 3.7
Chloride 106
Carbon Dioxide 25
BUN 15
Creatinine 1.1
Glucose 95
Calcium 8.1 L
Total Bilirubin 3.8 H
AST 152 H
ALT 44
Alkaline Phosphatase 181 H
Vital Signs:
Vital Signs
Temp Pulse Resp BP Pulse Ox
36.9 C 85 16 154/94 97
06/08/24 07:25 06/08/24 07:25 06/08/24 07:25 06/08/24 07:25 06/08/24 07:25
I&O
06/07/24 06/08/24 06/09/24
06:59 06:59 06:59
Intake Total 480 / 480 1055 / 1055
Balance 480 / 480 1055 / 1055
Review of Systems
-
Abdomen/GI: Reports Abdominal Pain (improved )
Physical Exam
-
General: Well Developed, Well Nourished, No Apparent Distress, Comfortable, Conversant and Morbidly Obese; Negative Respiratory Distress
HEENT: Normocephalic, Atraumatic, Nose Appears Normal and Ears Appear Normal; Negative Oxygen
Respiratory: Clear to Auscultation and Non Labored Respirations; Negative Accessory Resp Muscle Use
Cardiac: Regular Rhythm and S1/S2
GI: Soft, Nontender and Normal Bowel Sounds
Skin: Warm and Dry
Neuro: Awake, Alert, Oriented and AO x 3
Psych: Calm and Intact Judgement/Insight
Data Reviewed
-
Ultrasound: Report Reviewed by me
MRI: Report Reviewed by me
Labs: Labs Reviewed by me
--- NOTE | 2024-06-08 10:55 | W.PN.GI.CBS2 ---
Today's Communication / Plan
-
Infectious workup
He has OP hepatology appt for outpatient care with Dr Cooper at [facility] this Thursday or 06/27
GI will sign off please call for questions
Assessment / Plan
-
Pt is a 58yo with hx cirrhosis possible ETOH related, esophageal varices with banding x 3 work up in [place], noted with shakes, chills, vomiting, abdominal pain for a few days and brought to ER. On admission US with gallstones, moderate
splenomegaly with normal liver. MRI with changes of cirrhosis with portal HTN and recanalization fo umbilical vein with splenomegaly. No ascites seen. likely GB polyp, renal cyst, trace pleural effusion. Labs notable for pancytopenia with WBC
2.4, hbg drop to 10.9, and platelets 51,000. chemistry with albumin 3.4 with bili 3.8, AST 204, ALT 54, alk phos 176 and blood cx gram + cocci. tox screen neg except 14 ETOH level.
Impression
- Staph aureus bacteremia
- Cirrhosis of liver with hx EV with banding in [place] x 3 last in February, portal HTN per MRI, no hx HE or ascites
suspect ETOH or MASH related
viral hepatitis serologies negative
-pancytopenia
-hypoalbuminemia
-gallstones
Plan
- C/w abx and unclear source. Do not suspect biliary given MRI without biliary dilation
- He has no ascites on imaging for paracentesis
- Counseled on ETOH cessation
- Would benefit from comprehensive hereditary labs and transplant hepatology eval MELD 3.0 17 today. May also need OP EGD for FU of h/o EV
- He was able to make appt with Dr Song at [facility] for 06/10 and 06/27
No new GI recs will sign off please call for questions.
Subjective
Subjective
Date of Service: June 08, 2024
No acute events overnight. Denies abd pain, nausea/vomiting. Tolerating dinner without issue last night.
Objective
Data Reviewed
Laboratory Data:
Laboratory Results
06/08/24 06:32
06/08/24 06:32
Laboratory Results
PT 15.8 Sec (11.4-14.6) H 06/08/24 06:32
INR 1.27 06/08/24 06:32
Magnesium 2.0 mg/dl (1.6-2.3) 06/08/24 06:32
Total Bilirubin 3.8 mg/dl (0.2-1.3) H 06/08/24 06:32
AST 152 U/L (17-59) H 06/08/24 06:32
ALT 44 U/L (0-50) 06/08/24 06:32
Alkaline Phosphatase 181 U/L (38-126) H 06/08/24 06:32
Lipase 211 U/L (23-300) 06/06/24 12:08
Vital Signs and I&O:
Vital Signs
Temp Pulse Resp BP Pulse Ox
98.5 F 85 16 154/94 97
06/08/24 07:25 06/08/24 07:25 06/08/24 07:25 06/08/24 07:25 06/08/24 07:25
I&O
06/07/24 06/08/24 06/09/24
06:59 06:59 06:59
Intake Total 480 / 480 1055 / 1055
Balance 480 / 480 1055 / 1055
Physical Exam
Physical Exam
GEN: No acute distress, conversant, pleasant
HEENT: anicteric, extraocular movements intact, clear oropharynx without exudates
GI: soft, obese mildly-distended, not tender to palpation, normal active bowel sounds, no hepatosplenomegaly
EXT: warm, well perfused, trace edema bilaterally
NEURO: AAOx3, non-focal
[2024-06-08 11:20] VITALS: BP 123/66
--- NOTE | 2024-06-08 13:33 | W.PN.UPDATE ---
Update Note
Progress Note Update
I personally performed a history and physical exam of the patient and discussed management with the resident. I reviewed the resident's note seperatly documented note and agree with the documented findings and plan of care HPI/CC with the following
additions/corrections:
Mr Newberry is a 58 year old male resident of [facility] with history of EtOH abuse with known cirrhosis with esophageal varices (s/p banding x3), class III obesity, presenting for a 1 week history of chills, rigors, epigastric pain, dark urine, nausea,
vomiting headache fatigue. Continues to use alcohol typically 3 beers at a time, denies heavier use in the past. No improvement with tylenol. No sick contacts or recent travel. No history of viral hepatitis or family history of liver disease.
Since arrival here no recorded fevers, bp stable, intermittent mild tachycardia, wbc initially 2.4 now 2.8, hgb 12 now 10.9, plt 59, no left shift, cr 0.8 now 1.1, na 142t bili 3.8, ast 279 now 152, alt 68 now 44, alk phos 181, crp 9, hep A total
abx positive, IgM negative, hep B surface antibody/antigen/core all negative, hep c antibody neg, abd MRI: cirrhosis, portal HTN, no ascites, no lesions within the liver, gallstones, CXR no evidence of pneumonia
Past medical history: esophageal varcies with EGD and banding x3 in [place] , ETOH abuse , gallstones
Physical Exam
General: Well Nourished and No Apparent Distress
HEENT: mild jaundice
Respiratory: Clear to auscultation
Cardiac: Regular Rhythm
GI: mild RUQ tenderness
Musculoskeletal: No edema
Skin: Warm and Dry
Neuro: Awake, Alert, AO x 3
Labs reviewed and notable for:
wbc 2.4
hgb 10.9
plt 51
cr 1.0
t bili 3.8
INR 1.3
ast 204
alt 54
alk phos 176
lipase 211
06/06/24 single blood culture s aurues
06/07 blood cultures x2 no growth to date
Diagnostic Image Results:
06/06/24 US abdomen: Gallstones without evidence of cholecystitis
Moderate splenomegaly.
Nonvisualization of proximal IVC and abdominal aorta.
06/07/24 MR Abdomen W/o & W Contrast
Cirrhotic morphology, portal hypertension, splenomegaly. No suspicious arterially hyperenhancing lesions within the liver. No significant ascites.
Cholelithiasis without evidence of choledocholithiasis.
06/07 CXR: no infiltrates, possible mediastinal lymphadenopathy
TTE: no vegetation
58 year old male with cirrhosis likely due to EtOH abuse s/p esophageal banding x3 presenting for sepsis, no ascites, has gallstones without definte choledocolithiasis, found to have s aureus bacteremia without apparent source. ID is consulted for
assistance with management.
S aureus Bacteremia
Cirrhosis
Class III obesity
- one of two sets from 06/06: s aureus
- blood cultures x2 06/07 no growth to date
- TTE
- agree with vancomycin at this time
- stop zosyn
- working with clinical pharmacy to see if a one time dose of dalbavancin at D could be arranged to the complete the course, will hope to finalize the plan tomorrow.
AW
--- NOTE | 2024-06-08 14:08 | CON.ID ---
Addendum entered and electronically signed by Claribel Snell MD 06/09/24 16:42:
I personally performed a history and physical exam of the patient and discussed management with the resident. I reviewed the resident's note seperatly documented note and agree with the documented findings and plan of care HPI/CC with the following
additions/corrections:
Mr Newberry is a 58 year old male resident of [facility] with history of EtOH abuse with known cirrhosis with esophageal varices (s/p banding x3), class III obesity, presenting for a 1 week history of chills, rigors, epigastric pain, dark urine, nausea,
vomiting headache fatigue. Continues to use alcohol typically 3 beers at a time, denies heavier use in the past. No improvement with tylenol. No sick contacts or recent travel. No history of viral hepatitis or family history of liver disease.
Since arrival here no recorded fevers, bp stable, intermittent mild tachycardia, wbc initially 2.4 now 2.8, hgb 12 now 10.9, plt 59, no left shift, cr 0.8 now 1.1, na 142t bili 3.8, ast 279 now 152, alt 68 now 44, alk phos 181, crp 9, hep A total
abx positive, IgM negative, hep B surface antibody/antigen/core all negative, hep c antibody neg, abd MRI: cirrhosis, portal HTN, no ascites, no lesions within the liver, gallstones, CXR no evidence of pneumonia
Past medical history: esophageal varcies with EGD and banding x3 in [place] , ETOH abuse , gallstones
Physical Exam
General: Well Nourished and No Apparent Distress
HEENT: mild jaundice
Respiratory: Clear to auscultation
Cardiac: Regular Rhythm
GI: mild RUQ tenderness
Musculoskeletal: No edema
Skin: Warm and Dry
Neuro: Awake, Alert, AO x 3
Labs reviewed and notable for:
wbc 2.4
hgb 10.9
plt 51
cr 1.0
t bili 3.8
INR 1.3
ast 204
alt 54
alk phos 176
lipase 211
06/06/24 single blood culture s aurues
06/07 blood cultures x2 no growth to date
Diagnostic Image Results:
06/06/24 US abdomen: Gallstones without evidence of cholecystitis
Moderate splenomegaly.
Nonvisualization of proximal IVC and abdominal aorta.
06/07/24 MR Abdomen W/o & W Contrast
Cirrhotic morphology, portal hypertension, splenomegaly. No suspicious arterially hyperenhancing lesions within the liver. No significant ascites.
Cholelithiasis without evidence of choledocholithiasis.
06/07 CXR: no infiltrates, possible mediastinal lymphadenopathy
TTE: no vegetation
58 year old male with cirrhosis likely due to EtOH abuse s/p esophageal banding x3 presenting for sepsis, no ascites, has gallstones without definte choledocolithiasis, found to have s aureus bacteremia without apparent source. ID is consulted for
assistance with management.
S aureus Bacteremia
Cirrhosis
Class III obesity
- one of two sets from 06/06: s aureus
- blood cultures x2 06/07 no growth to date
- TTE
- agree with vancomycin at this time
- stop zosyn
- working with clinical pharmacy to see if a one time dose of dalbavancin at O[facility] could be arranged to the complete the course, will hope to finalize the plan tomorrow.
AW
Original Note:
Consultation
-
Date/Time Consultation Requested: 06/08/2024, 7:40 AM
Date/Time Consultation Performed: 06/08/2024, 2:08 PM
Requesting Provider: Delaney Caraballo MD
Performing Provider: Marybeth Salvador MD for Claribel Snell MD
Reason for Consultation: Bacteremia, cholelithiasis.
Chief Complaint / Past History
Chief Complaint
Headache chills epigastric pain and fatigue x 1 week.
History of Present Illness
58 yo M with PMHx significant for alcohol use, recent diagnosis of cirrhosis with 3 endoscopies and esophageal variceal banding, morbid obesity presented to the hospital with 1 week history of headache, rigors, chills, fatigue and right upper
quadrant/epigastric pain going on for 1 week. His recent alcohol was 3 beers about 1 to 2 weeks ago. However he never had any ascites or ascitic fluid tap.
It started with abdominal pain, which was throbbing in nature, extending over his right upper and right lower quadrants, epigastric region and was throbbing in nature, continuously present and gradually worsening. His pain was about 10/10 on the
day he presented to the ER, and it was associated with dark urine, nausea, vomiting (2 episodes of nonbilious nonbloody emesis), subjective chills and rigors that did not improve with intake of Tylenol. He denies having any sick contacts, past
history of viral hepatitis, family history of liver disease and recent travel outside of [facility]. He also denies being on any prophylactic antibiotics or episodes of ascites.
Upon arrival to the emergency room he was found to be afebrile with blood pressure and respiratory rate stable, occasional tachycardia, pancytopenia (WBC-2.4, no left shift, currently at 2.8, hemoglobin at 12-10.9 today, platelets-did not result on
day 1 but 59 today, creatinine at 1.1, bilirubin at 3.8, AST-279 improved today to 152, ALT at 68, improved to 44, alkaline phosphatase at 181 with no elevation of CRP.
His blood cultures showed a single positive culture of Staph aureus that was obtained in the ER. GI was consulted and a viral hepatitis panel was ordered of which hep A antibodies were positive but IgM were negative, hepatitis B panel and hepatitis
C antibody were negative. Repeat blood cultures x 2 ordered today were pending.
Past History
Past Medical History: Other (Obesity morbid, cirrhosis s/p esophageal banding for varices.)
Past Surgical History: None
Allergy History:
No Known Allergies Allergy (Unverified 06/06/24 10:06)
Medications Reviewed: Yes
Social History
Tobacco: Former Smoker
Alcohol: Daily (3 bottles of beer a day.)
Drug: None
Personal: Single
Living: Alone
Employment: Employed
Family History
Family History: Not Pertinent
Review of Systems
Review of Systems
General: Negative Chills
HEENT: Negative Headache
Cardiovascular: Dyspnea; Negative Chest Pain or Palpitations
Respiratory: Negative Cough or Hemoptysis
Gasteroenterology: Nausea, Vomiting and Other (Abdominal distention, abdominal pain-10/03.)
Genital / Urological: Dysuria
Hematologic: Bleeding Problems
Musculoskeletal: Joint Pain
Neurological: Headache
Vital Signs
Temp Pulse Resp BP Pulse Ox
98.8 F 100 18 123/66 96
06/08/24 11:20 06/08/24 11:20 06/08/24 11:20 06/08/24 11:20 06/08/24 11:20
Physical Exam
Physical Exam
Constitutional: Comfortable
Eyes: Pupils Equal; Negative Sclera Anicteric
Oral: Negative No Thrush
Cardiovascular: Regular Rate and S1/S2; Negative Murmur, Rub or Gallop
Pulmonary: Clear; Negative Wheezes, Rales or Rhonchi
Gastrointestinal: Soft, Tender (Mild tenderness in the right upper quadrant and epigastric region.) and Normal Bowel Sounds
Extremities: Negative Edema
Skin: Warm, Jaundice and Other (Bruising noted.)
Neurological: Awake
Psychological: Calm
Lab / Diagnostic Study Results
06/08/24 06:32
06/08/24 06:32
Abs Immat Gran (auto) 0.0 10^3/uL (0-0.05) 06/08/24 06:32
Absolute Neuts (auto) 1.8 10^3/uL (1.4-6.5) 06/08/24 06:32
Absolute Lymphs (auto) 0.5 10^3/uL (1.2-3.4) L 06/08/24 06:32
Absolute Monos (auto) 0.4 10^3/uL (0.1-0.6) 06/08/24 06:32
Absolute Basos (auto) 0.0 10^3/uL (0-0.2) 06/08/24 06:32
Immature Gran % 0.7 % (0-0.5) H 06/08/24 06:32
Neutrophils % 62.7 % (42.2-75.2) 06/08/24 06:32
Lymphocytes % 17.6 % (20.5-51.1) L 06/08/24 06:32
Monocytes % 13.0 % (1.7-9.3) H 06/08/24 06:32
Eosinophils % 5.3 % (0-6) 06/08/24 06:32
Basophils % 0.7 % (0-2) 06/08/24 06:32
PT 15.8 Sec (11.4-14.6) H 06/08/24 06:32
INR 1.27 06/08/24 06:32
Lactic Acid Cancelled 06/06/24 15:45
C-Reactive Protein 9.60 mg/L (0.0-10.00) 06/06/24 12:08
Ur Squamous Epith Cells 3-5 /LPF (Few) 06/06/24 12:09
Microbiology Results
Micro:
06/07/24 12:11 Blood Culture - Preliminary
Blood/Venous No Growth in 24 hours- Final report to follow
06/06/24 17:31 Blood Culture - Preliminary
Blood/Venous Staphylococcus aureus
Gram Stain - Preliminary
06/07/24 10:23 Blood Culture - Preliminary
Blood/Venous No Growth in 24 hours- Final report to follow
06/08/24 06:32 Blood Culture - Pending
Blood/Venous
06/06/24 17:31 Blood Culture - Preliminary
Blood/Venous No Growth in 24 hours- Final report to follow
06/06/24 12:08 Influenza Types A & B (STEFANIE) - Final
Nasal Swab Negative for Influenza A & B, NAAT
Negative results must be combined with clinical observations
and patient history.
Nucleic Acid Amplification test (NAAT)performed on the
[employer] platform.
Labs-
06/06/2024-
WBC-2.4, hemoglobin-10.9, creatinine 1.0, total bilirubin-3.8, direct bilirubin-2.2, INR-1.3, AST-257, ALT-44, alkaline phosphatase-176, lipase-211.
Lactic acid-1.3.
Diagnostic imaging-
Echocardiography-06/08/2024-
Normal left ventricular chamber size. Normal left ventricular systolic
function. Left ventricular ejection fraction is 60-65%. Normal regional wall
motion. Mild concentric left ventricular hypertrophy. Normal diastolic
function.
No significant valvular disease.
No evidence of vegetation, could consider LIAT if clinically indicated.
MRI abdomen and pelvis-
06/07/2024-
Cirrhotic morphology with evidence of portal hypertension including recanalization of the umbilical vein and splenomegaly. No suspicious arterially hyperenhancing lesions within the liver. No significant ascites. Recommend continued surveillance
with either ultrasound or multiphasic CT/MRI.
Cholelithiasis without evidence of choledocholithiasis. The common bile duct measures 4 mm.
There is a 1.1 cm enhancing focus along the posterior/superior wall of the body of the gallbladder, likely a polyp.
9 mm cyst with thin internal septation in the lower pole the left kidney consistent with Bosniak II.
Trace bilateral pleural effusions.
Abdominal ultrasound-06/06/24-
Gallstones. No secondary findings to suggest acute cholecystitis.
Moderate splenomegaly.
Nonvisualization of proximal IVC and abdominal aorta.
Assessment / Plan
Mehwhhmpyd-89-skog-old male with recent diagnosis of cirrhosis secondary to EtOH use, s/p esophageal variceal banding x 3 presents to the hospital for gradual onset epigastric pain, rigors, chills, and dark urine associated with nausea, vomiting.
He was diagnosed with staph aureus bacteremia.
Subjective-upper abdominal pain, nausea improving. Dark urine resolved.
Objective-gallstones noted, no evidence of acute cholecystitis
Single blood culture positive for staff aureus bacteremia.
Blood cultures obtained on 06/07/2024-no growth in 24 hours.
Plan-
sepsis-secondary to Staph aureus bacteremia.
One of the 2 sets obtained at same time on 06/06 in the ER positive for staff aureus bacteremia.
Blood cultures x 2 obtained on 06/07 showed no growth till date.
TTE has no evidence for bacterial endocarditis.
Stop Zosyn. Continue vancomycin.
Dr. Snell is working with pharmacy to get long-acting lipoglycopeptide as the treatment course.
[2024-06-08 15:30] VITALS: BP 119/69
--- NOTE | 2024-06-08 15:33 | PHA.VAN.FU ---
Vancomycin Assessment / Plan
- Assessment
Renal Function: SCR Increasing (slight increasing trend in SCR, BUN remains stable)
- Dosing Plan
Continue: Vanc 1250mg Q12H
- Monitoring Plan
No level(s) ordered at this time: low threshold to switch to dose by level if SCR continues to increase
- Follow Up
Pharmacy will continue to follow.
Vancomycin Follow UP
- -
Patient Age: 58
Patient Sex: Male
Vancomycin Day #: 3
Indication: Other
Requesting Provider: Dr. Caraballo
Pertinent Antimicrobial Allergies:
NKDA
Height / Weight:
Height 5 ft
Actual Weight 103.221 kg
Pertinent Past Medical History: BMI ~44
- Vital Signs / Lab Results
Temp Pulse Resp BP Pulse Ox
98.8 F 100 18 123/66 96
06/08/24 11:20 06/08/24 11:20 06/08/24 11:20 06/08/24 11:20 06/08/24 11:20
Lab Results - Hematology
06/06/24 06/07/24 06/08/24
12:08 04:08 06:32
WBC 2.4 L* 2.4 L* 2.8 L
Lab Results - Chemistry
06/06/24 06/07/24 06/08/24
12:08 04:08 06:32
BUN 10 15
Creatinine 0.8 1.0 1.1
Estimated Creat Clear 81 74
Albumin 4.0 3.4 L 3.3 L
06/06/24 06/06/24
12:09 15:45
Lactic Acid 1.3 Cancelled
Microbiology Results
06/07/24 12:11 Blood Culture - Preliminary
Blood/Venous No Growth in 24 hours- Final report to follow
06/06/24 17:31 Blood Culture - Preliminary
Blood/Venous Staphylococcus aureus
Gram Stain - Preliminary
06/07/24 10:23 Blood Culture - Preliminary
Blood/Venous No Growth in 24 hours- Final report to follow
06/06/24 17:31 Blood Culture - Preliminary
Blood/Venous No Growth in 24 hours- Final report to follow
06/06/24 12:08 Influenza Types A & B (STEFANIE) - Final
Nasal Swab Negative for Influenza A & B, NAAT
Negative results must be combined with clinical observations
and patient history.
Nucleic Acid Amplification test (NAAT)performed on the
[employer] platform.
[2024-06-08 19:26] VITALS: BP 140/85
[2024-06-08 23:44] VITALS: BP 110/73
[2024-06-09] VITALS (22 sets, daily range): BP systolic 111–172; BP diastolic 57–137; BMI 44.7
[2024-06-09] MEDS: ATIVAN 1 MG PO ×2 (03:37→15:39)
[2024-06-09] MEDS: ATIVAN 1 MG IV ×5 (04:25→20:56)
[2024-06-09] MEDS: VANCOCIN 275 MG IV ×2 (05:11→17:02)
--- NOTE | 2024-06-09 05:46 | W.PN.UPDATE ---
Update Note
Progress Note Update
Transfer to ICU - Daughter at the bedside translating.Patient noted to have acute confusion and restlessness. Pt's MSAS score 11 and 8. Given 1mg PO Ativan and 2mg IV Ativan in the last 3hours. Patient continues to be confused and restless.
Discussed with daughter for higher level of care, she understood.
--- NOTE | 2024-06-09 05:50 | PTCARENOTE ---
Patient becoming increasingly restless, continually trying to get out of bed, getting dressed, and pulling off monitor technician. Patient out in hallway talking loudly, trying to open closet doors. Shift MSAS were 1 prior to current behavior.
Medicated per protocol - see OCT. Pt not able to be reoriented despite use of criminal intelligence analyst. Called daughter to come in. Daughter at bedside translating and patient not making sense to daughter. Patient becoming increasingly confused, hallucinating,
and tachycardic. INSURANCE HEALTHCARE REPRESENTATIVE made aware and at bedside to assess patient. Orders to transfer patient to ICU - report called and patient transferred to [id number] with all belongings.
[2024-06-09] MEDS: ATIVAN 2 MG IV ×5 (06:00→23:39)
[2024-06-09] MEDS: NSS (PRESERVATIVE FREE) 10 ML IV ×2 (06:11→10:17)
[2024-06-09] MEDS: PRECEDEX 100 IV (06:18)
[2024-06-09 07:00] LABS: ALT (SGPT) 43 U/L (0-50); AST (SGOT) 120 U/L (17-59); Albumin 3.5 g/dl (3.5-5.0); Alkaline Phosphatase 185 U/L (38-126); Blood Urea Nitrogen 13 mg/dl (9-20); Calcium 8.5 mg/dl (8.4-10.2); Carbon Dioxide 26 mmol/L (22-30); Chloride 107 mmol/L (98-107); Estimated Creatinine Clearance 91 ml/min; Glucose 100 mg/dl (70-99); Magnesium 1.9 mg/dl (1.6-2.3); Potassium 4.3 mmol/L (3.5-5.1); Sodium 142 mmol/L (135-145); Total Bilirubin 3.6 mg/dl (0.2-1.3); eGFR > 60.00
--- NOTE | 2024-06-09 07:02 | PTCARENOTE ---
Received patient from 4th floor, with increasing agitation/confusion, alcohol history. MSAS 13-16 in ICU. 2mg Ativan given as ordered, Precedex initiated. Pt currently with RASS +4. Report given to oncoming nurse.
[2024-06-09 07:11] LABS: % Basophils 0.3 % (0-2); % Eosinophils 5.2 % (0-6); % Immature Granulocytes 0.3 % (0-0.5); % Lymphocytes 16.5 % (20.5-51.1); % Monocytes 12.2 % (1.7-9.3); % Neutrophils 65.5 % (42.2-75.2); Absolute Eosinophils 0.2 10^3/uL (0-0.7); Absolute Lymphocytes 0.5 10^3/uL (1.2-3.4); Absolute Monocytes 0.4 10^3/uL (0.1-0.6); Absolute Neutrophils 2.1 10^3/uL (1.4-6.5); Hemoglobin 11.1 g/dL (13.0-18.0); Mean Corp Hgb Conc. 32.6 g/dL (33.0-37.0); Mean Corpuscular Hgb 29.5 pg (27.0-31.0); Mean Corpuscular Volume 90.4 fL (80.0-94.0); Nucleated Red Blood Cells % 0 % (-); Red Blood Cell Count 3.76 10^6/uL (4.70-6.10); Red Cell Dist. Width 16.7 % (11.5-14.5); White Blood Cell Count 3.3 10^3/uL (4.8-10.8)
--- NOTE | 2024-06-09 07:28 | CON.INTV ---
Consultation
Consultation Request
Date/Time Consultation Requested: 06/09/2024-7 AM
Date/Time Consultation Performed: 06/09/2024-7:30 AM
Requesting Provider: Hospitalist
Performing Provider: Dr. Mcintosh
Reason for Consultation: Alcohol withdrawal/critical care management
Medical History
-
Chief Complaint: Alcohol withdrawal
History of Present Illness:
58-year-old non-Stateless speaking male with a history of alcohol use disorder, former smoker and alcoholic cirrhosis presenting with shaking chills, fatigue and epigastric pain admitted and then transferred to ICU with possible alcohol
withdrawal-steeple jack consulted for alcohol withdrawal/critical care management 06/09/2024. Patient is sedate and review of systems is unobtainable. Daughter was at the bedside for potential translation but he is 'and 'snoring'.
Past Medical History
Past Medical History: None (Alcohol use disorder. Alcoholic cirrhosis. Obesity. Obstructive sleep apnea suspected.)
Social History
Tobacco: Former Smoker
Alcohol: Daily
Drug: None
Personal: Single
Occupational Exposures: Unknown tuberculosis exposure
Environmental Exposures: Unknown asbestos exposure
Family History
Family History: Reviewed & Not Pertinent
Allergies / Home Medications
Allergies
Allergy/AdvReac Type Severity Reaction Status Date / Time
No Known Allergies Allergy Unverified 06/06/24 10:06
Home Medications
�Medication �Instructions �Recorded �Confirmed �Last Taken �Type
No Meds [No Current Medications] 06/06/24 06/06/24 Unknown History
Review of Systems
-
Unable to Obtain full review of systems at this time due to: Other (Per HPI)
Vitals / Labs / Diagnostic Testing
Vital Signs
Temp Pulse Resp BP Pulse Ox
98.8 F 100 23 171/116 98
06/09/24 06:58 06/09/24 07:00 06/09/24 07:00 06/09/24 06:43 06/09/24 06:45
Lab Data
06/09/24 06:35
06/09/24 06:35
Microbiology
06/06/24 17:31 Blood/Venous Blood Culture - Preliminary
Staphylococcus aureus
06/06/24 17:31 Blood/Venous Gram Stain - Preliminary
06/08/24 06:32 Blood/Venous Blood Culture - Preliminary
No Growth in 24 hours- Final report to follow
06/06/24 17:31 Blood/Venous Blood Culture - Preliminary
No Growth in 48 hours- Final report to follow
06/07/24 12:11 Blood/Venous Blood Culture - Preliminary
No Growth in 24 hours- Final report to follow
06/07/24 10:23 Blood/Venous Blood Culture - Preliminary
No Growth in 24 hours- Final report to follow
06/06/24 12:08 Nasal Swab Influenza Types A & B (STEFANIE) - Final
Negative for Influenza A & B, NAAT
Negative results must be combined with clinical observations
and patient history.
Nucleic Acid Amplification test (NAAT)performed on the
[employer] platform.
Diagnostic Testing:
Physical Exam
-
Exam:
Well-nourished and well-developed in no apparent distress
HEENT-atraumatic, normocephalic, thick neck
Neck-supple, no JVD, no bruit
Heart-regular rate and rhythm-no murmurs, rubs or gallops
Chest with diminished breath sounds but no wheezing or crackles
Abdomen-soft, distended, nontender, suspected ascites
Extremities-no cyanosis, clubbing, edema and good peripheral pulses
Integument-intact, no rashes, lesions or ecchymosis
Neurologically sleeping, snoring, moving extremities, nonfocal
Assessment
-
58-year-old non-Stateless speaking male from [place] with a history of alcohol use disorder, former smoker and alcoholic cirrhosis presenting with shaking chills, fatigue and epigastric pain admitted and then transferred to ICU with possible alcohol
withdrawal-steeple jack consulted for alcohol withdrawal/critical care management 06/09/2024.
Decompensated cirrhosis
Alcohol withdrawal/DTs
Pancytopenia-WBC 2.4, hemoglobin 11.1-normocytic, platelet count 51
Alcohol use disorder
History of esophageal varices banding in [place]
Staph aureus bacteremia
Tiny bilateral pleural effusions
Elevated bilirubin
Conditions present prior to admission:
Alcohol use disorder.
Alcoholic cirrhosis.
Morbid obesity-BMI 47
Obstructive sleep apnea suspected.
Plan
Patient will be admitted to medical intensive care unit with alcohol intoxication and significant risk for alcohol withdrawal syndrome
Supplemental oxygen as needed
Aspiration precautions
Incentive spirometry
Head of bed elevation
Pleural fluid reasons not large enough for thoracentesis
Follow MSAS
Alcohol withdrawal treatment protocol will continue
Supplements glucose and thiamine to prevent Wernicke's encephalopathy
Supplement multivitamins and folate
Replete deficiencies and glucose, potassium, magnesium and phosphorus
Benzodiazepines as needed-diazepam or lorazepam
Precedex drip if needed
If refractory DTs then would consider Phenobarbital 130-260 mg IV every 20 minutes
Alcohol cessation counseling
Consider psychiatry evaluation
Consider rehabilitation
Gastroenterology following
Abdominal MRI noted
Senior Cobol Developer in [place] including [place]-speaking ones names have been provided to daughter
Check cultures
Blood cultures positive-staff aureus bacteremia
Subsequent blood cultures negative
Infectious disease following
Monitor hemoglobin
Transfuse as needed
DVT prophylaxis
GI prophylaxis
Early nutrition
Early mobilization
Reviewed with daughter at the bedside during multidisciplinary rounds 06/09/2024
If able to be weaned off Precedex then transfer out of ICU-call pulmonary if respiratory issues arise
Patient clearly has significant obstructive sleep apnea-witnessed apneas and loud snoring, thick neck and morbid obesity-recommend outpatient sleep disordered breathing evaluation
Critical care statement: A total of 55 minutes of critical care time was provided for this patient today. This includes management of unstable vital signs, treatment for and prevention of alcohol withdrawal, evaluation of the patient at bedside,
reviewing the patient's pertinent medical records including radiographs, microbiology, laboratory evaluations, and discussion with primary team, consultants, pharmacy, nutrition, physical therapy, case management, charge nurse, critical care
nursing, and respiratory therapy.
Diagnostic data:
Chest x-ray 06/07/2024-NAD
Abdominal MRI 06/07/2024-cirrhotic morphology with portal hypertension, no suspicious arterial hyperenhancing lesions, cholelithiasis, gallbladder polyp, 9 mm cyst left pole of the kidney
Echocardiogram 06/08/2024-EF 60-65%, no valvular disease
Data Reviewed
-
EKG: Report reviewed by me
Radiology: Report reviewed by me
CT Scan: Report reviewed by me
Ultrasound: Report reviewed by me
MRI: Report reviewed by me
Medical Tests (Nuc Med, Echo etc): Report reviewed by me
Labs: Labs reviewed by me
Old Records: Reviewed
Critical Care Time (in minutes): 55
--- NOTE | 2024-06-09 07:57 | W.PN.ID1 ---
Addendum entered and electronically signed by Claribel Snell MD 06/09/24 14:26:
I saw and evaluated the patient. I reviewed the resident�s note and agree with findings and plan as documented in the resident�s note.
Overnight concern for DTs and patient moved to the ICU
Physical Exam
General: Well Nourished and No Apparent Distress
Respiratory: Clear to auscultation
Cardiac: Regular Rhythm
GI: nontender
Musculoskeletal: No edema
Skin: Warm and Dry
S aureus Bacteremia
Cirrhosis
Class III obesity
- one of two sets from 06/06: s aureus
- blood cultures x2 06/07 no growth to date
- TTE - no vegetation
- agree with vancomycin at this time
- prescription assistance paper sent to [facility] to see if prescription assistance for dalbavancin available
AW
Original Note:
Date of Service
Date of Service: June 09, 2024
Today's Communication
Continue vancomycin.
Hold long-acting lipoglycopeptide.
Assessment / Plan
[place]-15-ndoc-old male with recent diagnosis of cirrhosis secondary to EtOH use, s/p esophageal variceal banding x 3 presents to the hospital for gradual onset epigastric pain, rigors, chills, and dark urine associated with nausea, vomiting.
He was diagnosed with staph aureus bacteremia.
Subjective-unable to obtain subjective symptoms,
Objective-gallstones noted, no evidence of acute cholecystitis
Single blood culture positive for staff aureus bacteremia.
Blood cultures obtained on 06/07/2024-no growth in 24 hours.
acute delirium tremens secondary to alcohol withdrawal.
Plan-
sepsis-secondary to Staph aureus bacteremia.
One of the 2 sets obtained at same time on 06/06 in the ER positive for staff aureus bacteremia.
Blood cultures x 2 obtained on 06/07 showed no growth till date.
TTE has no evidence for bacterial endocarditis.
Stop Zosyn. Continue vancomycin.
Due to new onset of delirium tremens, long-acting lipo glycopeptide antibiotic is on hold for now
Chief Complaint
-: Fever and Bacteremia
Subjective / Review of Systems
Overnight patient had an acute episode of confusion and restlessness. His MSAS score overnight was at 8, patient received p.o. Ativan and then his MSAS went up to 11, patient received IV Ativan and is upgraded to ICU due to ongoing delirium.
Patient was shifted to ICU and was put on MSAS protocol. Most recent MSAS score in the morning At 16, RASS score at 4+. His blood alcohol levels 3 days prior to admission to ICU were at 14, hence patient could likely be in delirium tremens from
alcohol withdrawal. Patient was on Precedex due to his high RASS score.
Review of systems could not be obtained due to patient's condition of acuity.
Vital Signs / Physical Exam
Vital Signs
Vital Signs
Temp Pulse Resp BP Pulse Ox
98.8 F 100 23 171/116 98
06/09/24 06:58 06/09/24 07:00 06/09/24 07:00 06/09/24 06:43 06/09/24 06:45
Physical Exam
Constitutional: Obese and Other (Sedated, jaundiced.)
Eyes: Negative Sclera Anicteric
Cardiovascular: Regular Rate and S1/S2; Negative Murmur, Rub or Gallop
Pulmonary: Clear; Negative Wheezes, Rales or Rhonchi
Gastrointestinal: Soft, Non Tender, Normal Bowel Sounds and Other (Bruising noted bilaterally below the umbilicus and on left hand.)
Extremities: Negative Edema
Psychological: Calm
Objective Data
Lab Data
Lab Results
06/09/24 06:35
06/09/24 06:35
PT 15.8 Sec (11.4-14.6) H 06/08/24 06:32
INR 1.27 06/08/24 06:32
Estimated Creat Clear 91 ml/min 06/09/24 06:35
Lactic Acid Cancelled 06/06/24 15:45
Total Bilirubin 3.6 mg/dl (0.2-1.3) H 06/09/24 06:35
AST 120 U/L (17-59) H 06/09/24 06:35
ALT 43 U/L (0-50) 06/09/24 06:35
Alkaline Phosphatase 185 U/L (38-126) H 06/09/24 06:35
C-Reactive Protein 9.60 mg/L (0.0-10.00) 06/06/24 12:08
Most recent labs reviewed.
Micro Results:
06/06/24 17:31 Blood Culture - Preliminary
Blood/Venous Staphylococcus aureus
Gram Stain - Preliminary
06/08/24 06:32 Blood Culture - Preliminary
Blood/Venous No Growth in 24 hours- Final report to follow
06/06/24 17:31 Blood Culture - Preliminary
Blood/Venous No Growth in 48 hours- Final report to follow
06/07/24 12:11 Blood Culture - Preliminary
Blood/Venous No Growth in 24 hours- Final report to follow
06/07/24 10:23 Blood Culture - Preliminary
Blood/Venous No Growth in 24 hours- Final report to follow
06/06/24 12:08 Influenza Types A & B (STEFANIE) - Final
Nasal Swab Negative for Influenza A & B, NAAT
Negative results must be combined with clinical observations
and patient history.
Nucleic Acid Amplification test (NAAT)performed on the
FPSI platform.
Labs-
06/06/2024-
WBC-2.4, hemoglobin-10.9, creatinine 1.0, total bilirubin-3.6, direct bilirubin-2.2, INR-1.3, AST-120, ALT-43, alkaline phosphatase-185, lipase-211.
Lactic acid-1.3.
06/09/2024-platelet count-67.
Total bilirubin-3.6, AST-120, ALT-43, ALP-185.
Diagnostic imaging-
Echocardiography-06/08/2024-
Normal left ventricular chamber size. Normal left ventricular systolic
function. Left ventricular ejection fraction is 60-65%. Normal regional wall
motion. Mild concentric left ventricular hypertrophy. Normal diastolic
function.
No significant valvular disease.
No evidence of vegetation, could consider LIAT if clinically indicated.
MRI abdomen and pelvis-
06/07/2024-
Cirrhotic morphology with evidence of portal hypertension including recanalization of the umbilical vein and splenomegaly. No suspicious arterially hyperenhancing lesions within the liver. No significant ascites. Recommend continued surveillance
with either ultrasound or multiphasic CT/MRI.
Cholelithiasis without evidence of choledocholithiasis. The common bile duct measures 4 mm.
There is a 1.1 cm enhancing focus along the posterior/superior wall of the body of the gallbladder, likely a polyp.
9 mm cyst with thin internal septation in the lower pole the left kidney consistent with Bosniak II.
Trace bilateral pleural effusions.
Abdominal ultrasound-06/06/24-
Gallstones. No secondary findings to suggest acute cholecystitis.
Moderate splenomegaly.
Nonvisualization of proximal IVC and abdominal aorta.
--- NOTE | 2024-06-09 07:59 | PTCARENOTE ---
When RN assumed care of patient, MSAS score 16. IV Ativan and Precedex given per protocol. Bilateral soft wrist restraints placed on patient. as he is grabbing lines/tubes,staff. RN spoke with Karen (daughter) at bedside and updated her on plan of
care for shift.
[2024-06-09] MEDS: FOLVITE PO (08:28)
--- NOTE | 2024-06-09 08:45 | W.PN.HOSP.TC ---
Today's Communication/Plan
-
see A/P
Assessment / Plan
Assessment / Plan
HPI: 58 year old male with no significant PMH, Mohawk-speaking (language line used), p/w headache, body shaking, chills, fatigue and RUQ/epigastric Abd pain ongoing for about 1 week.
He took Tylenol without any improvement. He was brought in by his daughter for persistent symptoms.
Of note, patient lives in [facility], and his daughter went to visit him there. He brought the patient to OR due to him feeling unwell.
Patient endorsed to drinking alcohol about 3 shots. Last drink was 4 days ago.
A/P:
# General unwell/ chills with leukopenia, RUQ and epigastric pain
COVID/flu negative on admission
Initial blood culture positive for S aureus, follow S/S
Followup blood culture so far negative
Abdominal ultrasound unrevealing, noted gallstones but no secondary findings to suggest acute cholecystitis.
MRCP also without choledocholithiasis, noted liver cirrhosis with portal hypertension (recanalization of the umbilical vein and splenomegaly).
Cont empiric antibiotics vancomycin, DC Zosyn
Echo unrevealing: EF 60-65%. Normal regional wall motion. Mild concentric left ventricular hypertrophy. Normal diastolic function. No significant valvular disease. No evidence of vegetation.
ID on board
GS and GI on board
# Elevated LFT, AST > ALT, with liver cirrhosis, LFT improving
Abdominal ultrasound, liver morphology unrevealing
MRCP also without choledocholithiasis, noted liver cirrhosis with portal hypertension (recanalization of the umbilical vein and splenomegaly).
alcohol level and UDS negative
Monitor LFT, improving
Judicious use of Tylenol
Recc ETOH cessation
Follow viral hepatitis serologies.
Appreciate GI input, provided pt and daughter names of 3 automobile drivers in [place] area. One of whom is Mohawk speaking
# Hematuria noted on UA
Monitor
# Alcohol abuse with liver cirrhosis
Patient states last drink was 3 to 4 days prior to admission
covered with MSAS protocol
upgraded to ICU for DT, Precedex started
Lacquer Mixer consulted
DVT ppx: Lovenox SQ
Full code
DW RN , Lacquer Mixer
DW daughter at bedside
Anticipated Discharge: > 48 hours
Subjective/Interval History
-
Date of Service: June 09, 2024
Objective Data
-
Labs:
Laboratory Results
06/09/24
06:35
WBC 3.3 L
Hgb 11.1 L
Hct 34.0 L
Plt Count Pending
Sodium 142
Potassium 4.3
Chloride 107
Carbon Dioxide 26
BUN 13
Creatinine 0.9
Glucose 100 H
Calcium 8.5
Total Bilirubin 3.6 H
AST 120 H
ALT 43
Alkaline Phosphatase 185 H
Vital Signs:
Vital Signs
Temp Pulse Resp BP Pulse Ox
37.0 C 100 23 171/116 98
06/09/24 08:12 06/09/24 07:00 06/09/24 07:00 06/09/24 06:43 06/09/24 06:45
I&O
06/08/24 06/09/24 06/10/24
06:59 06:59 06:59
Intake Total 1055 / 1055 1919
Balance 1055 / 1055 1919
Review of Systems
-
Unable to obtain full review of systems at this time due to: Acuity
Physical Exam
-
General: Well Developed, Well Nourished, No Apparent Distress, Comfortable, Conversant and Morbidly Obese; Negative Respiratory Distress
HEENT: Normocephalic, Atraumatic, Nose Appears Normal and Ears Appear Normal; Negative Oxygen
Respiratory: Clear to Auscultation and Non Labored Respirations; Negative Accessory Resp Muscle Use
Cardiac: Regular Rhythm and S1/S2
GI: Soft, Nontender and Normal Bowel Sounds
Skin: Warm and Dry
Neuro: Sedated
Psych: Calm
Data Reviewed
-
Ultrasound: Report Reviewed by me
MRI: Report Reviewed by me
Labs: Labs Reviewed by me
[2024-06-09 08:52] LABS: Mean Platelet Volume 10.2 fL (7.4-10.4); Platelet Count 67 10^3/uL (130-400)
[2024-06-09] MEDS: THIAMINE INJECTION 200 MG IV (10:17)
[2024-06-09] MEDS: PROTONIX IV 40 MG IV (10:17)
--- NOTE | 2024-06-09 14:06 | PHA.VAN.FU ---
Vancomycin Assessment / Plan
- Assessment
Renal Function: Stable
In the past 24 hrs, patient has been: Afebrile
- Dosing Plan
Continue: Vanc 1250mg Q12H
- Monitoring Plan
Peak Level: 06/10 21:00
Trough Level: 06/11 05:30
Monitoring Comments: levels to be drawn after 6th maintenance dose
- Follow Up
Pharmacy will continue to follow.
Vancomycin Follow UP
- -
Patient Age: 58
Patient Sex: Male
Vancomycin Day #: 4
Indication: Other
Requesting Provider: Dr. Caraballo
Pertinent Antimicrobial Allergies:
NKDA
Height / Weight:
Height 5 ft
Actual Weight 103.8 kg
Pertinent Past Medical History: BMI ~44
- Vital Signs / Lab Results
Temp Pulse Resp BP Pulse Ox
98.1 F 58 21 111/76 97
06/09/24 11:50 06/09/24 12:15 06/09/24 12:15 06/09/24 12:00 06/09/24 12:15
Lab Results - Hematology
06/07/24 06/08/24 06/09/24
04:08 06:32 06:35
WBC 2.4 L* 2.8 L 3.3 L
Lab Results - Chemistry
06/07/24 06/08/24 06/09/24
04:08 06:32 06:35
BUN 19 15 13
Creatinine 1.0 1.1 0.9
Estimated Creat Clear 81 74 91
Albumin 3.4 L 3.3 L 3.5
06/06/24
15:45
Lactic Acid Cancelled
Microbiology Results
06/06/24 17:31 Blood Culture - Preliminary
Blood/Venous Staphylococcus aureus
Gram Stain - Preliminary
06/07/24 12:11 Blood Culture - Preliminary
Blood/Venous No Growth in 48 hours- Final report to follow
06/07/24 10:23 Blood Culture - Preliminary
Blood/Venous No Growth in 48 hours- Final report to follow
06/08/24 06:32 Blood Culture - Preliminary
Blood/Venous No Growth in 24 hours- Final report to follow
06/06/24 17:31 Blood Culture - Preliminary
Blood/Venous No Growth in 48 hours- Final report to follow
--- NOTE | 2024-06-09 15:33 | CM ---
CM following re: discharge planning.
Discussed in Rounds, reviewed pt's chart, met with pt and daughter Karen at bedside.
Pt's daughter stated that pt will not return back to [place] and he will live with her at [address] [place] [address]. Per daughter's request, CM provided with information and a process of transferring Medicaid from [place] to [place]. [facility]
office address provided. Pt's daughter will go to [facility] to start the process with transferring Medicaid benefits from [place] to [place].
PT and OT will evaluate the pt to determine a level of care at discharge. Pt's daughter is aware of limitations to navigate the next level of care due to insurance situation.
D/c plan: most likely ho e with family support and to coordinate with [facility] for transferring Medicaid benefits from [place] to [place].
CM will follow with discharge plan updates as hospitalization progresses
--- NOTE | 2024-06-09 16:23 | PTCARENOTE ---
Pt has been off Precedex gtt since 11am. MSAS has been 2-12 this shift, see MAR for ativan administrations per MSAS/RASS. RN utilized head neck surgeon Ipad to talk with patients daughter (Karen) and her at the bedside about their fathers plan of
care, medications, and goals for this shift. Family verbalized understanding of education and plan of care. Patient slept for most of the shift and woke up around 1500 anxious, fidgety, diaphoretic but now is A&Ox2, and taking in PO liquids. Ativan
given per order, see MAR. Dinner ordered for patient.
[2024-06-09] MEDS: VITAMIN B1 100 MG PO (19:37)
--- NOTE | 2024-06-09 20:00 | PTCARENOTE ---
Patient received in bed. Daughter at bedside, lithuanian speaking. Oriented x2 not to time. No complaints of pain Bilateral wrist restraints are maintained. NSR on monitor, afebrile, blood pressure as documented. Palpable pulses throughout, no
edema noted. Knee high SCDs maintained. Lungs coarse, pulse ox 96% on room air. Abdomen round obese with positive bowel sounds. Incontinent of urine. #20 g in LFA, #20 g in RAC flushed and patent. Bed alarm engaged.
[2024-06-10] VITALS (20 sets, daily range): BP systolic 108–176; BP diastolic 65–102; PULSE 55; BMI 45.1
[2024-06-10] MEDS: VERSED 2 MG IV (00:06)
[2024-06-10] MEDS: PRECEDEX 100 IV ×2 (00:11→05:06)
--- NOTE | 2024-06-10 00:21 | PTCARENOTE ---
patient agitated, heart rate in the 170s, pulling at restraints, MSAS >11. Precedex gtt restarted.
[2024-06-10] MEDS: PHENOBARBITAL 104 MG IV (00:31)
--- NOTE | 2024-06-10 01:00 | PTCARENOTE ---
Patient continues to escalate, son at bedside. Notified Karan GALVEZ, order received for phenobarb
--- NOTE | 2024-06-10 01:02 | PTCARENOTE ---
Patient calmer, CHG bath given, linens changed. Son remains at bedside
--- NOTE | 2024-06-10 01:04 | W.PN.UPDATE ---
Update Note
Progress Note Update
0030 Refractory ETOH DTS (acute agitated) despite MSAS protocol and precedex. ��Decision made to give Phenobarbital load, patient responded appropriately. �Phenobarbital taper order.�
--- NOTE | 2024-06-10 04:00 | PTCARENOTE ---
Patient reassessed, no changes in assessment
[2024-06-10 05:43] LABS: Vancomycin Trough 14.1 ug/ml (5-20)
[2024-06-10 05:48] LABS: % Basophils 0.6 % (0-2); % Eosinophils 3.2 % (0-6); % Immature Granulocytes 0.6 % (0-0.5); % Lymphocytes 12.7 % (20.5-51.1); % Monocytes 13.3 % (1.7-9.3); % Neutrophils 69.5 % (42.2-75.2); Absolute Eosinophils 0.1 10^3/uL (0-0.7); Absolute Lymphocytes 0.4 10^3/uL (1.2-3.4); Absolute Monocytes 0.4 10^3/uL (0.1-0.6); Absolute Neutrophils 2.3 10^3/uL (1.4-6.5); Hematocrit 35.4 % (39.0-52.0); Hemoglobin 11.6 g/dL (13.0-18.0); Mean Corp Hgb Conc. 32.3 g/dL (33.0-37.0); Mean Corpuscular Hgb 29.3 pg (27.0-31.0); Mean Corpuscular Volume 90.7 fL (80.0-94.0); Mean Platelet Volume 9.9 fL (7.4-10.4); Nucleated Red Blood Cells % 0 % (-); Platelet Count 67 10^3/uL (130-400); Red Blood Cell Count 3.86 10^6/uL (4.70-6.10); Red Cell Dist. Width 16.9 % (11.5-14.5); White Blood Cell Count 3.3 10^3/uL (4.8-10.8)
[2024-06-10 06:02] LABS: ALT (SGPT) 43 U/L (0-50); AST (SGOT) 122 U/L (17-59); Albumin 3.4 g/dl (3.5-5.0); Alkaline Phosphatase 161 U/L (38-126); Blood Urea Nitrogen 13 mg/dl (9-20); Calcium 8.3 mg/dl (8.4-10.2); Carbon Dioxide 23 mmol/L (22-30); Chloride 110 mmol/L (98-107); Estimated Creatinine Clearance 81 ml/min; Glucose 105 mg/dl (70-99); Magnesium 2.1 mg/dl (1.6-2.3); Phosphorus 3.8 mg/dl (2.5-4.5); Potassium 3.4 mmol/L (3.5-5.1); Sodium 145 mmol/L (135-145); Total Bilirubin 3.2 mg/dl (0.2-1.3); eGFR > 60.00
[2024-06-10] MEDS: VANCOCIN 275 MG IV (06:10)
--- NOTE | 2024-06-10 07:43 | W.PN.HOSP.TC ---
Today's Communication/Plan
-
see A/P
Assessment / Plan
Assessment / Plan
HPI: 58 year old male with no significant PMH, [place]-speaking (language line used), p/w headache, body shaking, chills, fatigue and RUQ/epigastric Abd pain ongoing for about 1 week.
He took Tylenol without any improvement. He was brought in by his daughter for persistent symptoms.
Of note, patient lives in [facility], and his daughter went to visit him there. He brought the patient to [place] due to him feeling unwell.
Patient endorsed to drinking alcohol about 3 shots. Last drink was 4 days ago.
A/P:
# General unwell/ chills with leukopenia, RUQ and epigastric pain
COVID/flu negative on admission
Initial blood culture 1/2 positive for S aureus, follow S/S
Followup blood culture so far negative
Abdominal ultrasound unrevealing, noted gallstones but no secondary findings to suggest acute cholecystitis.
MRCP also without choledocholithiasis, noted liver cirrhosis with portal hypertension (recanalization of the umbilical vein and splenomegaly).
Cont empiric antibiotic, now on vancomycin only
Echo unrevealing: EF 60-65%. Normal regional wall motion. Mild concentric left ventricular hypertrophy. Normal diastolic function. No significant valvular disease. No evidence of vegetation.
ID on board
GS and GI on board
# Elevated LFT, AST > ALT, with liver cirrhosis, LFT improving
Abdominal ultrasound, liver morphology unrevealing
MRCP also without choledocholithiasis, noted liver cirrhosis with portal hypertension (recanalization of the umbilical vein and splenomegaly).
alcohol level and UDS negative
Monitor LFT, improving
Judicious use of Tylenol
Recc ETOH cessation
viral hepatitis panel noted HepA total Ab positive, IgM negative.
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 One of whom is St Helenian speaking
# Hematuria noted on UA
Monitor
# Alcohol abuse with liver cirrhosis
# Delirium tremor
last drink was 3 to 4 days prior to admission per pt
covered with MSAS protocol
upgraded to ICU for DT, Precedex started, Phenobarb started
Alpaca Farmer consulted
# Hypokalemia
replete
DVT ppx: Lovenox SQ
Full code
DW RN
DW son at bedside
CC Mx for DT, CC time 40 min
Anticipated Discharge: > 48 hours
Subjective/Interval History
-
Date of Service: June 10, 2024
Objective Data
-
Labs:
Laboratory Results
06/10/24
04:49
WBC 3.3 L
Hgb 11.6 L
Hct 35.4 L
Plt Count 67 L
Sodium 145
Potassium 3.4 L
Chloride 110 H
Carbon Dioxide 23
BUN 13
Creatinine 1.0
Glucose 105 H
Calcium 8.3 L
Total Bilirubin 3.2 H
AST 122 H
ALT 43
Alkaline Phosphatase 161 H
Vital Signs:
Vital Signs
Temp Pulse Resp BP Pulse Ox
36.4 C 55 23 169/94 100
06/10/24 03:17 06/10/24 07:00 06/10/24 07:00 06/10/24 07:00 06/10/24 07:00
I&O
06/09/24 06/10/24 06/11/24
06:59 06:59 06:59
Intake Total 1919 762.4 / 762.4
Balance 1919 762.4 / 762.4
Review of Systems
-
Unable to obtain full review of systems at this time due to: Acuity
Physical Exam
-
General: Well Developed, Well Nourished, No Apparent Distress, Comfortable, Conversant and Morbidly Obese; Negative Respiratory Distress
HEENT: Normocephalic, Atraumatic, Nose Appears Normal and Ears Appear Normal
Respiratory: Clear to Auscultation and Non Labored Respirations; Negative Accessory Resp Muscle Use
Cardiac: Regular Rhythm and S1/S2
GI: Soft, Nontender and Normal Bowel Sounds
Skin: Warm and Dry
Neuro: Sedated
Psych: Calm
Data Reviewed
-
Ultrasound: Report Reviewed by me
MRI: Report Reviewed by me
Labs: Labs Reviewed by me
--- NOTE | 2024-06-10 07:49 | PTCARENOTE ---
0700 patient in bed. RASS -3 Moderate sedation . Unable to wake up to sternum rub. BP upper arm 169/94; SB 56. Precedex 0.8/20.8 ml .
Precedex D/C due to Bradycardia SB 55 on telemetry. potassium 3.4 K-CL IV 40meq adm per order. Patient son at the bed site updates with plan of care provided
[2024-06-10] MEDS: KCL 270 MEQ IV (07:57)
--- NOTE | 2024-06-10 07:57 | W.PN.INTV ---
Today's Communication / Plan
Recommendations
Phenobarbital initiated
Antibiotics per infectious disease
Ativan as needed
If able to be weaned off Precedex then transfer out of ICU-call pulmonary if respiratory issues arise
Assessment
-
58-year-old non-Lithuanian speaking male from [place] with a history of alcohol use disorder, former smoker and alcoholic cirrhosis presenting with shaking chills, fatigue and epigastric pain admitted and then transferred to ICU with possible alcohol
withdrawal-chronograph operator consulted for alcohol withdrawal/critical care management 06/09/2024.
Decompensated cirrhosis
Alcohol withdrawal/DTs
Pancytopenia-WBC 2.4, hemoglobin 11.1-normocytic, platelet count 51
Alcohol use disorder
History of esophageal varices banding in [place]
Staph aureus bacteremia
Tiny bilateral pleural effusions
Elevated bilirubin
Conditions present prior to admission:
Alcohol use disorder.
Alcoholic cirrhosis.
Morbid obesity-BMI 47
Obstructive sleep apnea suspected.
Plan
Patient critically ill on a Precedex drip
Supplemental oxygen as needed
Aspiration precautions
Incentive spirometry
Head of bed elevation
Pleural fluid reasons not large enough for thoracentesis
Continue to follow MSAS
Alcohol withdrawal treatment protocol will continue
Supplements glucose and thiamine to prevent Wernicke's encephalopathy
Supplement multivitamins and folate
Replete deficiencies and glucose, potassium, magnesium and phosphorus
Benzodiazepines as needed-diazepam or lorazepam
Precedex drip continues as needed-attempt to wean off
With refractory DTs begin phenobarbital 130-260 mg IV every 20 minutes
Alcohol cessation counseling
Consider psychiatry evaluation
Consider rehabilitation
Gastroenterology following
Abdominal MRI noted
Cash Register Operator in [place] including Jordanian-speaking ones names have been provided to daughter
Check cultures
Blood cultures positive-staff aureus bacteremia
Subsequent blood cultures negative
Infectious disease following
Antibiotics per infectious disease
Monitor hemoglobin
Transfuse as needed
DVT prophylaxis
GI prophylaxis
Early nutrition
Early mobilization
Dr. Mcintosh reviewed with daughter at the bedside during multidisciplinary rounds 06/09/2024
If able to be weaned off Precedex then transfer out of ICU-call pulmonary if respiratory issues arise
Patient clearly has significant obstructive sleep apnea-witnessed apneas and loud snoring, thick neck and morbid obesity-recommend outpatient sleep disordered breathing evaluation
Critical care statement: A total of 38 minutes of critical care time was provided for this patient today. This includes management of unstable vital signs, treatment for and prevention of alcohol withdrawal, evaluation of the patient at bedside,
reviewing the patient's pertinent medical records including radiographs, microbiology, laboratory evaluations, and discussion with primary team, consultants, pharmacy, nutrition, physical therapy, case management, charge nurse, critical care
nursing, and respiratory therapy.
Diagnostic data:
Chest x-ray 06/07/2024-NAD
Abdominal MRI 06/07/2024-cirrhotic morphology with portal hypertension, no suspicious arterial hyperenhancing lesions, cholelithiasis, gallbladder polyp, 9 mm cyst left pole of the kidney
Echocardiogram 06/08/2024-EF 60-65%, no valvular disease
Subjective Dataa
Subjective Data
Date of Service:
Date of Service: June 10, 2024
Chief Complaint: Part Time Flexible Clerk Follow Up and Pulmonary Follow Up
Subjective:
Sedated, phenobarbital initiated, on Precedex drip, unable to obtain review of systems
Review of Systems
General: Other (Per HPI)
Objective Data
Data Reviewed
Vital Signs / I&O / Oxygen:
Vital Signs
Temp Pulse Resp BP Pulse Ox
98.0 F 55 23 169/94 100
06/10/24 07:54 06/10/24 07:00 06/10/24 07:00 06/10/24 07:00 06/10/24 07:00
Intake and Output
06/09/24 06/10/24 06/11/24
06:59 06:59 06:59
Intake Total 1919 762.4 / 762.4
Balance 1919 762.4 / 762.4
SaO2 100
Physical Exam
General: Respiratory Distress (n) and Comfortable
HEENT: Normocephalic, Anicteric and Moist Mucous Membranes
Cardiovascular: Regular Rhythm
Respiratory: Wheeze (n), Crackles (n), Rhonchi (n), Non-Labored Respirations, Accessory Resp Muscle Use (n) and Stridor (n)
GI: Soft, Non Distended and Non Tender
Neurology: Lethargic (Sedate)
Skin: Warm, Good Color, Cyanosis (n), Jaundice (n) and Rash (n)
Labs/Micro/Reports
Lab Data
06/10/24 04:49
06/10/24 04:49
Microbiology
06/08/24 06:32 Blood/Venous Blood Culture - Preliminary
No Growth in 48 hours- Final report to follow
06/06/24 17:31 Blood/Venous Blood Culture - Preliminary
No Growth in 72 hours- Final report to follow
06/06/24 17:31 Blood/Venous Blood Culture - Preliminary
Staphylococcus aureus
06/06/24 17:31 Blood/Venous Gram Stain - Preliminary
06/07/24 12:11 Blood/Venous Blood Culture - Preliminary
No Growth in 48 hours- Final report to follow
06/07/24 10:23 Blood/Venous Blood Culture - Preliminary
No Growth in 48 hours- Final report to follow
[2024-06-10] MEDS: PROTONIX IV 40 MG IV (08:19)
[2024-06-10] MEDS: NSS (PRESERVATIVE FREE) 10 ML IV (08:19)
[2024-06-10] MEDS: PHENOBARBITAL 97.5 MG IV (08:19)
--- NOTE | 2024-06-10 08:20 | PHA.VAN.FU ---
Vancomycin Assessment / Plan
- Assessment
Renal Function: Stable
WBC's are: Stable (leukopenia)
In the past 24 hrs, patient has been: Afebrile
Concomitant Antimicrobials: none
- Assessment - Therapeutic Drug Monitoring
Extrapolated Cmax (mcg/mL): 33.1
Peak level was drawn: Appropriately
Extrapolated Cmin (mcg/mL): 13.8
Trough Drawn: Appropriately
Levels were drawn: At steady state
Calculated AUC (mcg*h/mL): 534
Calculated ke: 0.0829
Calculated half life (H): 8.4
Calculated Vd (L): 56.42
Calculated Vanc CL (ml/min): 77.93
- Dosing Plan
Continue: vancomycin 1250 mg q12h
- Monitoring Plan
Level(s) appropriate: Recheck trough at minimum of weekly intervals, Repeat sooner for changes in renal function or clinical status
- Follow Up
Pharmacy will continue to follow.
Vancomycin Follow UP
- -
Patient Age: 58
Patient Sex: Male
Vancomycin Day #: 5
Indication: Other
Requesting Provider: Dr. Caraballo
Pertinent Antimicrobial Allergies:
NKDA
Height / Weight:
Height 5 ft
Actual Weight 103.8 kg
Pertinent Past Medical History: BMI ~44
- Vital Signs / Lab Results
Temp Pulse Resp BP Pulse Ox
98.0 F 55 23 169/94 100
06/10/24 07:54 06/10/24 07:00 06/10/24 07:00 06/10/24 07:00 06/10/24 07:00
Lab Results - Hematology
06/08/24 06/09/24 06/10/24
06:32 06:35 04:49
WBC 2.8 L 3.3 L 3.3 L
Lab Results - Chemistry
06/08/24 06/09/24 06/10/24
06:32 06:35 04:49
BUN 15 13 13
Creatinine 1.1 0.9 1.0
Estimated Creat Clear 74 91 81
Albumin 3.3 L 3.5 3.4 L
Microbiology Results
06/08/24 06:32 Blood Culture - Preliminary
Blood/Venous No Growth in 48 hours- Final report to follow
06/06/24 17:31 Blood Culture - Preliminary
Blood/Venous No Growth in 72 hours- Final report to follow
06/06/24 17:31 Blood Culture - Preliminary
Blood/Venous Staphylococcus aureus
Gram Stain - Preliminary
06/07/24 12:11 Blood Culture - Preliminary
Blood/Venous No Growth in 48 hours- Final report to follow
06/07/24 10:23 Blood Culture - Preliminary
Blood/Venous No Growth in 48 hours- Final report to follow
Therapeutic Drug Monitoring
Vancomycin Peak 26.0 ug/ml (18-26) 06/09/24 21:26
Vancomycin Trough 14.1 ug/ml (5-20) 06/10/24 04:49
--- NOTE | 2024-06-10 08:24 | PTCARENOTE ---
Patient in bed . RASS -3; Precedex Stopped for SB 55; BP via RT upper arm 160/89; SB 55; RR 24; 95% RA.
RASS -3 Not waking up to sternum rub. Pupils reactive equal.
SB 54 S1 and S2 to auscultation.
Abdomen round soft nontender
Incontinent of urine
skin intact Jaundice. No edema pedal pulses +2;
Restraints to b/l wrist
--- NOTE | 2024-06-10 10:14 | W.PN.ID1 ---
Addendum entered and electronically signed by Claribel Snell MD 06/10/24 15:26:
I saw and evaluated the patient. I reviewed the resident�s note and agree with findings and plan as documented in the resident�s note with the following additions/corrections:
SOAP
S: ongoing agitation, phenobarbital load and taper started
O:
afebrile, bp stable
General: No distress
Respiratory: Clear to Auscultation
Cardiac: Regular Rhythm and S1/S2
GI: Soft, Nontender and Normal Bowel Sounds
Skin: mild jaundice
Neuro: Sedated
labs: 06/07 blood cultures remain no growth
06/06 single blood culture with S aureus - awaiting sensi
A&P
S aureus Bacteremia
Cirrhosis
Class III obesity
- one of two sets from 06/06: s aureus
- blood cultures x2 06/07 no growth to date
- TTE - no vegetation
- agree with cefazolin at this time - will need a two week effective course of IV
- prescription assistance paper sent to [employer] to see if prescription assistance for dalbavancin available; alternatively patient might need to go to infusion center once daily for daptomycin to finish the course
AW
Original Note:
Date of Service
Date of Service: June 10, 2024
Today's Communication
Stop vancomycin and start cefazolin 2 g every 8 hourly.
Assessment / Plan
Usqciyurew-89-vgoh-old male with recent diagnosis of cirrhosis secondary to EtOH use, s/p esophageal variceal banding x 3 presents to the hospital for gradual onset epigastric pain, rigors, chills, and dark urine associated with nausea, vomiting.
He was diagnosed with staph aureus bacteremia.
Subjective-unable to obtain subjective symptoms,
Objective-gallstones noted, no evidence of acute cholecystitis
Single blood culture positive for staff aureus bacteremia.
Blood cultures obtained on 06/07/2024-no growth in 24 hours.
acute delirium tremens secondary to alcohol withdrawal.
Plan-
sepsis-secondary to Staph aureus bacteremia. Culture sensitivities resulted. No MRSA isolated.
One of the 2 sets obtained at same time on 06/06 in the ER positive for staff aureus bacteremia.
Blood cultures x 2 obtained on 06/07 showed no growth till date.
TTE has no evidence for bacterial endocarditis.
Stop Zosyn. Stop vancomycin. Start cefazolin.
Due to new onset of delirium tremens, long-acting lipo glycopeptide antibiotic is on hold for now
Chief Complaint
-: Fever and Bacteremia
Subjective / Review of Systems
Patient is off of Precedex sedation. Patient was awake when I saw him and was able to make conversation. However he continues to remain somnolent. He is oriented to time person and place.
Review of Systems: No Fever, No Chills, No Headache, No Pharyngitis, No Stiff Neck, No Cough, No Sputum Production, No Chest Pain, No Palpitations, No Abdominal Pain, Nausea, No Vomiting and No Diarrhea
Vital Signs / Physical Exam
Vital Signs
Vital Signs
Temp Pulse Resp BP Pulse Ox
98.0 F 55 23 169/94 100
06/10/24 07:54 06/10/24 07:00 06/10/24 07:00 06/10/24 07:00 06/10/24 07:00
Physical Exam
Constitutional: Comfortable (Jaundiced, breathing on room air, somnolent.)
Eyes: Negative Sclera Anicteric
Cardiovascular: Regular Rate and S1/S2; Negative Murmur, Rub or Gallop
Pulmonary: Clear; Negative Wheezes, Rales or Rhonchi
Gastrointestinal: Soft, Non Tender, Distended (And obese.) and Normal Bowel Sounds
Genito-Urinary: Negative Yu
Extremities: Negative Edema
Skin: Warm
Neurological: Awake and AO x 3; Negative Alert
Psychological: Calm
Objective Data
Lab Data
Lab Results
06/10/24 04:49
06/10/24 04:49
PT 15.8 Sec (11.4-14.6) H 06/08/24 06:32
INR 1.27 06/08/24 06:32
Estimated Creat Clear 81 ml/min 06/10/24 04:49
Lactic Acid Cancelled 06/06/24 15:45
Total Bilirubin 3.2 mg/dl (0.2-1.3) H 06/10/24 04:49
AST 122 U/L (17-59) H 06/10/24 04:49
ALT 43 U/L (0-50) 06/10/24 04:49
Alkaline Phosphatase 161 U/L (38-126) H 06/10/24 04:49
C-Reactive Protein 9.60 mg/L (0.0-10.00) 06/06/24 12:08
Most recent labs reviewed.
Micro Results:
06/06/24 17:31 Blood Culture - Preliminary
Blood/Venous S aureus-Methicillin Sensitive
Gram Stain - Preliminary
06/08/24 06:32 Blood Culture - Preliminary
Blood/Venous No Growth in 48 hours- Final report to follow
06/06/24 17:31 Blood Culture - Preliminary
Blood/Venous No Growth in 72 hours- Final report to follow
06/07/24 12:11 Blood Culture - Preliminary
Blood/Venous No Growth in 48 hours- Final report to follow
06/07/24 10:23 Blood Culture - Preliminary
Blood/Venous No Growth in 48 hours- Final report to follow
06/06/24 12:08 Influenza Types A & B (STEFANIE) - Final
Nasal Swab Negative for Influenza A & B, NAAT
Negative results must be combined with clinical observations
and patient history.
Nucleic Acid Amplification test (NAAT)performed on the
Recognition PRO platform.
Labs-
06/06/2024-
WBC-2.4, hemoglobin-10.9, creatinine 1.0, total bilirubin-3.6, direct bilirubin-2.2, INR-1.3, AST-120, ALT-43, alkaline phosphatase-185, lipase-211.
Lactic acid-1.3.
06/10/2024-platelet count-67.
Total bilirubin-3.2, AST-1202 ALT-43, ALP-161, LDH-336.
Diagnostic imaging-
Echocardiography-06/08/2024-
Normal left ventricular chamber size. Normal left ventricular systolic
function. Left ventricular ejection fraction is 60-65%. Normal regional wall
motion. Mild concentric left ventricular hypertrophy. Normal diastolic
function.
No significant valvular disease.
No evidence of vegetation, could consider LIAT if clinically indicated.
MRI abdomen and pelvis-
06/07/2024-
Cirrhotic morphology with evidence of portal hypertension including recanalization of the umbilical vein and splenomegaly. No suspicious arterially hyperenhancing lesions within the liver. No significant ascites. Recommend continued surveillance
with either ultrasound or multiphasic CT/MRI.
Cholelithiasis without evidence of choledocholithiasis. The common bile duct measures 4 mm.
There is a 1.1 cm enhancing focus along the posterior/superior wall of the body of the gallbladder, likely a polyp.
9 mm cyst with thin internal septation in the lower pole the left kidney consistent with Bosniak II.
Trace bilateral pleural effusions.
Abdominal ultrasound-06/06/24-
Gallstones. No secondary findings to suggest acute cholecystitis.
Moderate splenomegaly.
Nonvisualization of proximal IVC and abdominal aorta.
[2024-06-10 10:57] LABS: LDH 336 U/L (120-246)
[2024-06-10] MEDS: KCL 20 MEQ PO (11:58)
[2024-06-10] MEDS: ANCEF 10 IV ×2 (11:58→21:35)
[2024-06-10] MEDS: VITAMIN B1 100 MG PO ×2 (11:59→21:37)
[2024-06-10] MEDS: FOLVITE 1 MG PO (11:59)
--- NOTE | 2024-06-10 12:29 | CM ---
CM following re: discharge planning.
Discussed in Rounds, reviewed pt's chart, met with pt and daughter Karen and pt's son at bedside.
Pt's daughter stated that pt will not return back to [place] and he will live with her at [address] [place] [address], [facility]. Pt's daughter is following with [facility] office to start the process with transferring Medicaid benefits from [place]
to [place].
PT and OT will evaluate the pt to determine a level of care at discharge. Pt most likely will need IV antibiotics treatment upon the discharge.
D/c plan: pt might need SNF level of care with Medicaid pending pay source till Medicaid from [place] will be switched to Medicaid in [place].
CM will follow with discharge plan updates as hospitalization progresses
--- NOTE | 2024-06-10 13:25 | PTCARENOTE ---
Restraints off . MSAS score 1 .
[2024-06-10] MEDS: LUMINAL 64.8 MG PO ×2 (17:05→21:36)
--- NOTE | 2024-06-10 18:16 | PTCARENOTE ---
patient in bed. MSAS 1. Language barrier; pt speaks Amharic only. Translation provided pt pt's son. Pt denies abdominal pain. Abdomen round non-tender. Bs present. Tolerating liquid and solid without difficulties call milton within reach
--- NOTE | 2024-06-10 22:10 | PTCARENOTE ---
Assumed care of pt at 1900. Pt is Singaporean-speaking, I was able to communicate in Singaporean with him to determine his orientation, pt oriented to person and place, at first said it was June then corrected himself to May, not oriented to exact
date or to situation. Pt is calm and cooperative with care and able to follow commands. MSAS = 1 for vague orientation, but does not score for any other criteria so far. SR 60s on monitor. SpO2 97% on RA. No c/o pain. See nursing shift assessment
flowsheet for full physical assessment details. Family at bedside, son will be staying the night. Bed alarm activated.
--- NOTE | 2024-06-10 23:02 | PTCARENOTE ---
Report given to Pam Hamlin RN who will be assuming care of pt as of [id number].
[2024-06-11] VITALS (11 sets, daily range): BP systolic 100–136; BP diastolic 50–90
[2024-06-11] MEDS: FLUSH (NSS) 2 FLUSH IV (04:32)
[2024-06-11] MEDS: ANCEF 10 IV ×3 (04:32→21:11)
[2024-06-11 05:26] LABS: % Basophils 0.9 % (0-2); % Immature Granulocytes 0.5 % (0-0.5); % Lymphocytes 18.1 % (20.5-51.1); % Monocytes 12.2 % (1.7-9.3); % Neutrophils 63.3 % (42.2-75.2); Absolute Eosinophils 0.2 10^3/uL (0-0.7); Absolute Lymphocytes 0.8 10^3/uL (1.2-3.4); Absolute Monocytes 0.5 10^3/uL (0.1-0.6); Absolute Neutrophils 2.8 10^3/uL (1.4-6.5); Hematocrit 36.3 % (39.0-52.0); Hemoglobin 11.7 g/dL (13.0-18.0); Mean Corp Hgb Conc. 32.2 g/dL (33.0-37.0); Mean Corpuscular Hgb 29.3 pg (27.0-31.0); Mean Platelet Volume 10.1 fL (7.4-10.4); Nucleated Red Blood Cells % 0 % (-); Platelet Count 79 10^3/uL (130-400); Red Blood Cell Count 3.99 10^6/uL (4.70-6.10); Red Cell Dist. Width 16.9 % (11.5-14.5); White Blood Cell Count 4.4 10^3/uL (4.8-10.8)
[2024-06-11 05:40] LABS: ALT (SGPT) 34 U/L (0-50); AST (SGOT) 112 U/L (17-59); Albumin 3.3 g/dl (3.5-5.0); Alkaline Phosphatase 182 U/L (38-126); Blood Urea Nitrogen 14 mg/dl (9-20); Calcium 8.4 mg/dl (8.4-10.2); Carbon Dioxide 23 mmol/L (22-30); Chloride 107 mmol/L (98-107); Estimated Creatinine Clearance 82 ml/min; Glucose 92 mg/dl (70-99); Sodium 143 mmol/L (135-145); Total Bilirubin 2.6 mg/dl (0.2-1.3); Total Protein 6.8 g/dl (6.3-8.2); eGFR > 60.00
--- NOTE | 2024-06-11 08:02 | W.PN.HOSP.TC ---
Today's Communication/Plan
-
see A/P
Assessment / Plan
Assessment / Plan
HPI: 58 year old male with no significant PMH, Lithuanian-speaking (language line used), p/w headache, body shaking, chills, fatigue and RUQ/epigastric Abd pain ongoing for about 1 week.
He took Tylenol without any improvement. He was brought in by his daughter for persistent symptoms.
Of note, patient lives in [facility], and his daughter went to visit him there. He brought the patient to [place] due to him feeling unwell.
Patient endorsed to drinking alcohol about 3 shots. Last drink was 4 days ago.
A/P:
# General unwell/ chills with leukopenia, RUQ and epigastric pain
COVID/flu negative on admission
Initial blood culture 1/2 positive for MSSA, followup blood culture are negative
Abdominal ultrasound unrevealing, noted gallstones but no secondary findings to suggest acute cholecystitis.
MRCP also without choledocholithiasis, noted liver cirrhosis with portal hypertension (recanalization of the umbilical vein and splenomegaly).
IV vancomycin -> Ancef, ID recc two weeks course of IV Rx, CM to assist with such dispo plan
Echo unrevealing: EF 60-65%. Normal regional wall motion. Mild concentric left ventricular hypertrophy. Normal diastolic function. No significant valvular disease. No evidence of vegetation.
ID on board
# Elevated LFT, AST > ALT, with liver cirrhosis, LFT improving
Abdominal ultrasound, liver morphology unrevealing
MRCP also without choledocholithiasis, noted liver cirrhosis with portal hypertension (recanalization of the umbilical vein and splenomegaly).
alcohol level and UDS negative
Monitor LFT, improving
Judicious use of Tylenol
Recc ETOH cessation
viral hepatitis panel noted HepA total Ab positive but IgM negative.
Appreciate GI input, provided pt and daughter names of 3 clinic lpn in [facility]. One of whom is Lithuanian speaking
# Alcohol abuse with liver cirrhosis
# Delirium tremor
last drink was 3 to 4 days prior to admission per pt
cover with MSAS protocol
Was upgraded to ICU for DT with Precedex drip. Off Precedex drip and downgraded to IMU.
cont Phenobarb taper
# Hypokalemia
repleted
DVT ppx: Lovenox SQ
Full code
DW son at bedside. Discussed with them dispo options
DW CM
total time spent 51 min
Anticipated Discharge: 24 - 48 hours
Subjective/Interval History
-
Date of Service: June 11, 2024
Objective Data
-
Labs:
Laboratory Results
06/11/24
04:46
WBC 4.4 L
Hgb 11.7 L
Hct 36.3 L
Plt Count 79 L
Sodium 143
Potassium 4.0
Chloride 107
Carbon Dioxide 23
BUN 14
Creatinine 1.0
Glucose 92
Calcium 8.4
Total Bilirubin 2.6 H
AST 112 H
ALT 34
Alkaline Phosphatase 182 H
Vital Signs:
Vital Signs
Temp Pulse Resp BP Pulse Ox
37.1 C 70 20 104/80 94
06/11/24 07:00 06/11/24 06:00 06/11/24 06:00 06/11/24 06:00 06/11/24 06:00
I&O
06/10/24 06/11/24 06/12/24
06:59 06:59 06:59
Intake Total 762.4 / 762.4 720 / 720
Balance 762.4 / 762.4 720 / 720
Review of Systems
-
All other systems: Reviewed and negative
Physical Exam
-
General: Well Developed, Well Nourished, No Apparent Distress, Comfortable, Conversant and Morbidly Obese; Negative Respiratory Distress
HEENT: Normocephalic, Atraumatic, Nose Appears Normal and Ears Appear Normal
Respiratory: Clear to Auscultation and Non Labored Respirations; Negative Accessory Resp Muscle Use
Cardiac: Regular Rhythm and S1/S2
GI: Soft, Nontender and Normal Bowel Sounds
Skin: Warm and Dry
Neuro: Awake
Psych: Calm and Intact Judgement/Insight
Data Reviewed
-
Ultrasound: Report Reviewed by me
MRI: Report Reviewed by me
Labs: Labs Reviewed by me
--- NOTE | 2024-06-11 08:11 | PTCARENOTE ---
0700 pt seen in bed. Language barrier, pt's son at bedside over night, per translation pt able to state his name, aware to time and place. MSAS 0; Denies chest pain . No N/V. BP via Rt upper arm stable ST 104 on telemetry. S1 and S 2 on auscultation
No edema pedal pulses +2;
Abdomen round non -tender
Incontinent of urine will encouraged to ambulate to bathroom more frequently
pt OOB chair call milton within reach Able to ambulate to bathroom, gait unsteady due to c/o of dizziness
[2024-06-11] MEDS: PROTONIX 40 MG PO (08:37)
[2024-06-11] MEDS: FOLVITE 1 MG PO (08:38)
[2024-06-11] MEDS: VITAMIN B1 100 MG PO ×2 (08:38→21:11)
[2024-06-11] MEDS: LUMINAL 64.8 MG PO ×3 (08:39→21:11)
--- NOTE | 2024-06-11 14:51 | PTCARENOTE ---
AAO x3 denies pain, no Nausea no vomiting. OOB chair. Ambulates with walker
--- NOTE | 2024-06-11 21:31 | PTCARENOTE ---
Assumed care of pt at 1900. Pt is A/O x3 at this time. Primarily Hong Konger speaking. Pleasant and cooperative with care. Has been able to ambulate to bathroom with rolling walker. SR 70s on monitor. See nursing shift assessment flowsheet for full
physical assessment details. Pt is telemetry level of care, will be transferred to room 316 bed 2 this evening, patient and family aware.
--- NOTE | 2024-06-11 22:08 | PTCARENOTE ---
Report called to BHASKAR Muñoz. Pt transported in wheelchair by PCT, at this time, all belongings sent.
[2024-06-12 03:06] VITALS: BP 133/83
[2024-06-12] MEDS: ANCEF 10 IV ×3 (03:44→20:37)
[2024-06-12 05:04] LABS: % Basophils 0.8 % (0-2); % Eosinophils 4.7 % (0-6); % Immature Granulocytes 0.5 % (0-0.5); % Lymphocytes 16.9 % (20.5-51.1); % Monocytes 18.2 % (1.7-9.3); % Neutrophils 58.9 % (42.2-75.2); Absolute Eosinophils 0.2 10^3/uL (0-0.7); Absolute Lymphocytes 0.6 10^3/uL (1.2-3.4); Absolute Monocytes 0.7 10^3/uL (0.1-0.6); Absolute Neutrophils 2.2 10^3/uL (1.4-6.5); Hematocrit 34.9 % (39.0-52.0); Hemoglobin 11.4 g/dL (13.0-18.0); Mean Corp Hgb Conc. 32.7 g/dL (33.0-37.0); Mean Corpuscular Hgb 30.1 pg (27.0-31.0); Mean Corpuscular Volume 92.1 fL (80.0-94.0); Mean Platelet Volume 11.1 fL (7.4-10.4); Nucleated Red Blood Cells % 0 % (-); Platelet Count 82 10^3/uL (130-400); Red Blood Cell Count 3.79 10^6/uL (4.70-6.10); Red Cell Dist. Width 16.9 % (11.5-14.5); White Blood Cell Count 3.8 10^3/uL (4.8-10.8)
[2024-06-12 05:12] LABS: ALT (SGPT) 27 U/L (0-50); AST (SGOT) 85 U/L (17-59); Albumin 3.1 g/dl (3.5-5.0); Alkaline Phosphatase 191 U/L (38-126); Blood Urea Nitrogen 16 mg/dl (9-20); Calcium 8.5 mg/dl (8.4-10.2); Carbon Dioxide 25 mmol/L (22-30); Chloride 104 mmol/L (98-107); Estimated Creatinine Clearance 91 ml/min; Glucose 113 mg/dl (70-99); Potassium 3.4 mmol/L (3.5-5.1); Sodium 139 mmol/L (135-145); Total Bilirubin 2.2 mg/dl (0.2-1.3); Total Protein 6.5 g/dl (6.3-8.2); eGFR > 60.00
[2024-06-12 08:00] VITALS: BP 126/76
[2024-06-12] MEDS: KCL 40 MEQ PO (09:07)
[2024-06-12] MEDS: FOLVITE 1 MG PO (09:08)
[2024-06-12] MEDS: LUMINAL 64.8 MG PO (09:09)
[2024-06-12] MEDS: PROTONIX 40 MG PO (09:09)
[2024-06-12] MEDS: VITAMIN B1 100 MG PO ×2 (09:09→20:37)
--- NOTE | 2024-06-12 09:57 | W.PN.HOSP.TC ---
Today's Communication/Plan
-
see A/P
Assessment / Plan
Assessment / Plan
HPI: 58 year old male with no significant PMH, Sammarinese-speaking (language line used), p/w headache, body shaking, chills, fatigue and RUQ/epigastric Abd pain ongoing for about 1 week.
He took Tylenol without any improvement. He was brought in by his daughter for persistent symptoms.
Of note, patient lives in [facility], and his daughter went to visit him there. He brought the patient to [place] due to him feeling unwell.
Patient endorsed to drinking alcohol about 3 shots. Last drink was 4 days ago.
A/P:
# General unwell/ chills with leukopenia, RUQ and epigastric pain
COVID/flu negative on admission
Initial blood culture 1/2 positive for MSSA, followup blood culture are negative
Abdominal ultrasound unrevealing, noted gallstones but no secondary findings to suggest acute cholecystitis.
MRCP also without choledocholithiasis, noted liver cirrhosis with portal hypertension (recanalization of the umbilical vein and splenomegaly).
IV vancomycin -> Ancef, ID recc two weeks course of IV Rx, CM to assist with dispo plan
Echo unrevealing: EF 60-65%. Normal regional wall motion. Mild concentric left ventricular hypertrophy. Normal diastolic function. No significant valvular disease. No evidence of vegetation.
ID on board
# Elevated LFT, AST > ALT, with liver cirrhosis, LFT improving
Abdominal ultrasound, liver morphology unrevealing
MRCP also without choledocholithiasis, noted liver cirrhosis with portal hypertension (recanalization of the umbilical vein and splenomegaly).
alcohol level and UDS negative
LFT improving
Judicious use of Tylenol
Recc ETOH cessation
viral hepatitis panel noted HepA total Ab positive but IgM negative.
Appreciate GI input, provided pt and daughter names of 3 insurance processing clerk in [facility]. One of whom is Sammarinese speaking
# Alcohol abuse with liver cirrhosis
# Delirium tremor
last drink was 3 to 4 days prior to admission per pt
cover with MSAS protocol
Was upgraded to ICU for DT with Precedex drip. Off Precedex drip and downgraded to tele.
cont Phenobarb taper
# Hypokalemia
repleted
DVT ppx: Lovenox SQ
Full code
Dispo: CM to assist
updated daughter on the phone
Anticipated Discharge: 24 - 48 hours
Subjective/Interval History
-
Date of Service: June 12, 2024
Objective Data
-
Labs:
Laboratory Results
06/12/24
04:17
WBC 3.8 L
Hgb 11.4 L
Hct 34.9 L
Plt Count 82 L
Sodium 139
Potassium 3.4 L
Chloride 104
Carbon Dioxide 25
BUN 16
Creatinine 0.9
Glucose 113 H
Calcium 8.5
Total Bilirubin 2.2 H
AST 85 H
ALT 27
Alkaline Phosphatase 191 H
Vital Signs:
Vital Signs
Temp Pulse Resp BP Pulse Ox
36.8 C 77 18 126/76 98
06/12/24 08:00 06/12/24 08:00 06/12/24 08:00 06/12/24 08:00 06/12/24 08:00
I&O
06/11/24 06/12/24 06/13/24
06:59 06:59 06:59
Intake Total 720 / 720 480 / 480
Balance 720 / 720 480 / 480
Review of Systems
-
All other systems: Reviewed and negative
Physical Exam
-
General: Well Developed, Well Nourished, No Apparent Distress, Comfortable, Conversant and Morbidly Obese; Negative Respiratory Distress
HEENT: Normocephalic, Atraumatic, Nose Appears Normal and Ears Appear Normal
Respiratory: Clear to Auscultation and Non Labored Respirations; Negative Accessory Resp Muscle Use
Cardiac: Regular Rhythm and S1/S2
GI: Soft, Nontender and Normal Bowel Sounds
Skin: Warm and Dry
Neuro: Awake
Psych: Calm and Intact Judgement/Insight
Data Reviewed
-
Ultrasound: Report Reviewed by me
MRI: Report Reviewed by me
Labs: Labs Reviewed by me
[2024-06-12 11:00] VITALS: BP 114/71
[2024-06-12 15:00] VITALS: BP 114/66
[2024-06-12 16:34] LABS: Haptoglobin 94 mg/dL (30-200)
[2024-06-12] MEDS: LUMINAL 32.4 MG PO ×2 (16:46→20:37)
[2024-06-12 19:22] VITALS: BP 133/90
[2024-06-12] MEDS: FLUSH (NSS) 2 FLUSH IV (20:37)
[2024-06-12 23:32] VITALS: BP 123/88
[2024-06-13 03:00] VITALS: BP 131/76
[2024-06-13] MEDS: ANCEF 10 IV ×3 (04:09→21:01)
[2024-06-13] MEDS: FLUSH (NSS) 2 FLUSH IV (04:09)
[2024-06-13 04:58] LABS: % Basophils 0.8 % (0-2); % Eosinophils 6.3 % (0-6); % Immature Granulocytes 0.3 % (0-0.5); % Lymphocytes 17.5 % (20.5-51.1); % Monocytes 14.2 % (1.7-9.3); % Neutrophils 60.9 % (42.2-75.2); Absolute Eosinophils 0.2 10^3/uL (0-0.7); Absolute Lymphocytes 0.6 10^3/uL (1.2-3.4); Absolute Monocytes 0.5 10^3/uL (0.1-0.6); Absolute Neutrophils 2.2 10^3/uL (1.4-6.5); Hematocrit 36.5 % (39.0-52.0); Hemoglobin 11.9 g/dL (13.0-18.0); Mean Corp Hgb Conc. 32.6 g/dL (33.0-37.0); Mean Corpuscular Hgb 30.2 pg (27.0-31.0); Mean Corpuscular Volume 92.6 fL (80.0-94.0); Mean Platelet Volume 10.8 fL (7.4-10.4); Nucleated Red Blood Cells % 0 % (-); Platelet Count 95 10^3/uL (130-400); Red Blood Cell Count 3.94 10^6/uL (4.70-6.10); Red Cell Dist. Width 16.8 % (11.5-14.5); White Blood Cell Count 3.7 10^3/uL (4.8-10.8)
[2024-06-13 05:13] LABS: ALT (SGPT) 23 U/L (0-50); AST (SGOT) 82 U/L (17-59); Albumin 3.3 g/dl (3.5-5.0); Alkaline Phosphatase 201 U/L (38-126); Blood Urea Nitrogen 16 mg/dl (9-20); Calcium 8.8 mg/dl (8.4-10.2); Carbon Dioxide 23 mmol/L (22-30); Chloride 105 mmol/L (98-107); Estimated Creatinine Clearance 91 ml/min; Glucose 142 mg/dl (70-99); Magnesium 1.9 mg/dl (1.6-2.3); Potassium 3.7 mmol/L (3.5-5.1); Sodium 140 mmol/L (135-145); Total Bilirubin 2.2 mg/dl (0.2-1.3); Total Protein 6.8 g/dl (6.3-8.2); eGFR > 60.00
[2024-06-13 07:39] LABS: Glucose - Point of Care 86 mg/dl (70-99)
[2024-06-13] MEDS: PROTONIX 40 MG PO (07:44)
[2024-06-13] MEDS: LUMINAL 32.4 MG PO ×3 (07:44→22:09)
[2024-06-13] MEDS: VITAMIN B1 100 MG PO ×2 (07:44→21:01)
[2024-06-13] MEDS: FOLVITE 1 MG PO (07:44)
--- NOTE | 2024-06-13 09:05 | W.PN.HOSP.TC ---
Today's Communication/Plan
-
Adjustment of IV antibiotics. Continue phenobarbital tapering.
Assessment / Plan
Assessment / Plan
Physical exam:
General: Acute on chronically ill
HEENT: Normocephalic, Atraumatic and Moist Mucous Membranes
Respiratory: Clear to Auscultation; Negative Wheezes, Rales or Rhonchi
Cardiac: Regular Rhythm and S1/S2
GI: Soft, Nontender and Nondistended
Musculoskeletal: No Clubbing, No Cyanosis and No Edema
Neuro: Awake, Alert and Oriented
Psych: Calm
A/P:
MSSA bacteremia:
On IV cefazolin. Planning to do IV daptomycin per ID.
Discussed with ID today.
agricultural equipment sales manager for discharge disposition possibly tomorrow
Discussed with daughter at bedside today
Liver cirrhosis:
Alcohol abstinence
GI consult appreciated
Possible referral to radio station audio engineer as outpatient
Alcohol withdrawal:
Stable
Required Precedex drip and phenobarbital taper-currently on phenobarbital 32.5 mg p.o. 3 times daily.
Pancytopenia:
Liver cirrhosis and splenic sequestration related
Monitor
DVT prophylaxis:
SCDs
No pharmacological prophylaxis due to thrombocytopenia
CODE STATUS:
Full code
Anticipated Discharge: 24 - 48 hours
Subjective/Interval History
-
Date of Service: June 13, 2024
Patient denies any abdominal pain nausea vomiting or diarrhea. Alert and oriented. Afebrile
Objective Data
-
Labs:
Laboratory Results
06/13/24
04:29
WBC 3.7 L
Hgb 11.9 L
Hct 36.5 L
Plt Count 95 L
Sodium 140
Potassium 3.7
Chloride 105
Carbon Dioxide 23
BUN 16
Creatinine 0.9
Glucose 142 H
Calcium 8.8
Total Bilirubin 2.2 H
AST 82 H
ALT 23
Alkaline Phosphatase 201 H
Vital Signs:
Vital Signs
Temp Pulse Resp BP Pulse Ox
99.1 F 84 18 131/76 98
06/13/24 03:00 06/13/24 03:00 06/13/24 03:00 06/13/24 03:00 06/13/24 03:00
I&O
06/12/24 06/13/24 06/14/24
06:59 06:59 06:59
Intake Total 480 / 480 1859
Balance 480 / 480 1859
--- NOTE | 2024-06-13 10:13 | CM ---
Received a call from Shahana at [facility] who confirmed that she has received all clinical information and she can put patient on a M, W, F schedule @10:30am. Will confirm that is ok with patient. Patient can start as soon as he is medically stable.
[facility]
Plan: Case management will continue to follow and assist with discharge planning. Dialysis, outpatient IV ABX.
[2024-06-13 15:32] VITALS: BP 135/86
[2024-06-13 19:32] VITALS: BP 127/78
[2024-06-13 22:30] VITALS: BP 110/75
[2024-06-14] MEDS: CUBICIN 14 MG IV (05:14)
[2024-06-14 06:15] LABS: INR 1.28; PT 15.9 Sec (11.4-14.6)
[2024-06-14 06:17] LABS: % Basophils 0.9 % (0-2); % Immature Granulocytes 0.5 % (0-0.5); % Monocytes 16.6 % (1.7-9.3); % Neutrophils 59.5 % (42.2-75.2); Absolute Eosinophils 0.3 10^3/uL (0-0.7); Absolute Lymphocytes 0.8 10^3/uL (1.2-3.4); Absolute Monocytes 0.7 10^3/uL (0.1-0.6); Absolute Neutrophils 2.7 10^3/uL (1.4-6.5); Hematocrit 34.8 % (39.0-52.0); Hemoglobin 11.3 g/dL (13.0-18.0); Mean Corp Hgb Conc. 32.7 g/dL (33.0-37.0); Mean Corpuscular Hgb 29.5 pg (27.0-31.0); Mean Platelet Volume 11.2 fL (7.4-10.4); Nucleated Red Blood Cells % 0 % (-); Platelet Count 115 10^3/uL (130-400); Red Cell Dist. Width 16.6 % (11.5-14.5); White Blood Cell Count 4.5 10^3/uL (4.8-10.8)
[2024-06-14 06:24] LABS: ALT (SGPT) 24 U/L (0-50); AST (SGOT) 103 U/L (17-59); Albumin 3.2 g/dl (3.5-5.0); Alkaline Phosphatase 197 U/L (38-126); Blood Urea Nitrogen 16 mg/dl (9-20); Calcium 8.8 mg/dl (8.4-10.2); Carbon Dioxide 24 mmol/L (22-30); Chloride 103 mmol/L (98-107); Creatine Phosphokinase 43 U/L (55-170); Estimated Creatinine Clearance 91 ml/min; Glucose 105 mg/dl (70-99); Potassium 4.5 mmol/L (3.5-5.1); Sodium 137 mmol/L (135-145); Total Bilirubin 2.1 mg/dl (0.2-1.3); Total Protein 6.6 g/dl (6.3-8.2); eGFR > 60.00
[2024-06-14 07:10] VITALS: BP 123/79
[2024-06-14] MEDS: LUMINAL 32.4 MG PO (08:04)
[2024-06-14] MEDS: PROTONIX 40 MG PO (08:04)
[2024-06-14] MEDS: FOLVITE 1 MG PO (08:04)
[2024-06-14] MEDS: VITAMIN B1 100 MG PO ×2 (08:04→20:18)
--- NOTE | 2024-06-14 08:48 | W.PN.HOSP.TC ---
Today's Communication/Plan
-
IV antibiotics.
Assessment / Plan
Assessment / Plan
Physical exam:
General: Acute on chronically ill
HEENT: Normocephalic, Atraumatic and Moist Mucous Membranes
Respiratory: Clear to Auscultation; Negative Wheezes, Rales or Rhonchi
Cardiac: Regular Rhythm and S1/S2
GI: Soft, Nontender and Nondistended
Musculoskeletal: No Clubbing, No Cyanosis and No Edema
Neuro: Awake, Alert and Oriented
Psych: Calm
A/P:
MSSA bacteremia:
On IV Daptomycin per ID.
Discussed with ID yesterday.
pre press manager for discharge disposition
Discussed with daughter at bedside today on 06/14
Possible discharge later today or in a.m. depending on coordination of outpatient antibiotics by case management.
Liver cirrhosis:
Alcohol abstinence
GI consult appreciated
Possible referral to intake counselor as outpatient
Alcohol withdrawal:
Stable
Required Precedex drip and phenobarbital taper-just finished course of phenobarbital. On benzos as needed but has not required.
Pancytopenia:
Liver cirrhosis and splenic sequestration related
Monitor
DVT prophylaxis:
SCDs
No pharmacological prophylaxis due to thrombocytopenia
CODE STATUS:
Full code
Anticipated Discharge: Today
Subjective/Interval History
-
Date of Service: June 14, 2024
Patient denies any new complaints. Afebrile
Objective Data
-
Labs:
Laboratory Results
06/14/24
05:31
WBC 4.5 L
Hgb 11.3 L
Hct 34.8 L
Plt Count 115 L D
PT 15.9 H
INR 1.28
Sodium 137
Potassium 4.5
Chloride 103
Carbon Dioxide 24
BUN 16
Creatinine 0.9
Glucose 105 H
Calcium 8.8
Total Bilirubin 2.1 H
AST 103 H
ALT 24
Alkaline Phosphatase 197 H
Vital Signs:
Vital Signs
Temp Pulse Resp BP Pulse Ox
98.6 F 84 16 123/79 97
06/14/24 07:10 06/14/24 07:10 06/14/24 07:10 06/14/24 07:10 06/14/24 07:10
I&O
06/13/24 06/14/24 06/15/24
06:59 06:59 06:59
Intake Total 1859 1050 / 1050
Balance 1859 1050 / 1050
--- NOTE | 2024-06-14 12:02 | W.PN.ID1 ---
Date of Service
Date of Service: June 14, 2024
Today's Communication
- will go to the infusion center to complete the two week course of IV antibiotis from 06/07-06/20
- switched to daptomycin for ease of dosing - script sent to case finisher
stable for dc from ID perspective when outpatient IV antibiotics set up
Assessment / Plan
A&P
S aureus Bacteremia
Cirrhosis
Class III obesity
- one of two sets from 06/06: s aureus
- blood cultures x2 06/07 finalized negative
- TTE - no vegetation
- will go to the infusion center to complete the two week course of IV antibiotis from 06/07-06/20
- switched to daptomycin for ease of dosing - script sent to case finisher
stable for dc from ID perspective when outpatient IV antibiotics set up
AW
Chief Complaint
-: Bacteremia
Subjective / Review of Systems
afebrile
bp stable
tolerating current antibiotics
case finisher note references HD but patient is not on dialysis
Vital Signs / Physical Exam
Vital Signs
Vital Signs
Temp Pulse Resp BP Pulse Ox
98.6 F 84 16 123/79 97
06/14/24 07:10 06/14/24 07:10 06/14/24 07:10 06/14/24 07:10 06/14/24 07:10
Physical Exam
Constitutional: No Acute Distress
Cardiovascular: Regular Rate and S1/S2; Negative Murmur or Rub
Pulmonary: Clear and Symmetric; Negative Wheezes or Rales
Gastrointestinal: Soft, Non Tender, Non Distended and Normal Bowel Sounds
Skin: Warm and Dry; Negative Rash or Jaundice
Objective Data
Lab Data
Lab Results
06/14/24 05:31
06/14/24 05:31
PT 15.9 Sec (11.4-14.6) H 06/14/24 05:31
INR 1.28 06/14/24 05:31
Estimated Creat Clear 91 ml/min 06/14/24 05:31
Lactic Acid Cancelled 06/06/24 15:45
Total Bilirubin 2.1 mg/dl (0.2-1.3) H 06/14/24 05:31
AST 103 U/L (17-59) H 06/14/24 05:31
ALT 24 U/L (0-50) 06/14/24 05:31
Alkaline Phosphatase 197 U/L (38-126) H 06/14/24 05:31
C-Reactive Protein 9.60 mg/L (0.0-10.00) 06/06/24 12:08
Most recent labs reviewed.
Micro Results:
06/06/24 17:31 Blood Culture - Final
Blood/Venous S aureus-Methicillin Sensitive
Gram Stain - Final
06/08/24 06:32 Blood Culture - Final
Blood/Venous No Growth - Final Report
06/07/24 12:11 Blood Culture - Final
Blood/Venous No Growth - Final Report
06/07/24 10:23 Blood Culture - Final
Blood/Venous No Growth - Final Report
06/06/24 17:31 Blood Culture - Final
Blood/Venous No Growth - Final Report
06/06/24 12:08 Influenza Types A & B (STEFANIE) - Final
Nasal Swab Negative for Influenza A & B, NAAT
Negative results must be combined with clinical observations
and patient history.
Nucleic Acid Amplification test (NAAT)performed on the
[employer] platform.
Labs-
06/06/2024-
WBC-2.4, hemoglobin-10.9, creatinine 1.0, total bilirubin-3.6, direct bilirubin-2.2, INR-1.3, AST-120, ALT-43, alkaline phosphatase-185, lipase-211.
Lactic acid-1.3.
06/10/2024-platelet count-67.
Total bilirubin-3.2, AST-1202 ALT-43, ALP-161, LDH-336.
Diagnostic imaging-
Echocardiography-06/08/2024-
Normal left ventricular chamber size. Normal left ventricular systolic
function. Left ventricular ejection fraction is 60-65%. Normal regional wall
motion. Mild concentric left ventricular hypertrophy. Normal diastolic
function.
No significant valvular disease.
No evidence of vegetation, could consider LIAT if clinically indicated.
MRI abdomen and pelvis-
06/07/2024-
Cirrhotic morphology with evidence of portal hypertension including recanalization of the umbilical vein and splenomegaly. No suspicious arterially hyperenhancing lesions within the liver. No significant ascites. Recommend continued surveillance
with either ultrasound or multiphasic CT/MRI.
Cholelithiasis without evidence of choledocholithiasis. The common bile duct measures 4 mm.
There is a 1.1 cm enhancing focus along the posterior/superior wall of the body of the gallbladder, likely a polyp.
9 mm cyst with thin internal septation in the lower pole the left kidney consistent with Bosniak II.
Trace bilateral pleural effusions.
Abdominal ultrasound-06/06/24-
Gallstones. No secondary findings to suggest acute cholecystitis.
Moderate splenomegaly.
Nonvisualization of proximal IVC and abdominal aorta.
--- NOTE | 2024-06-14 14:05 | CM ---
Addendum entered by DOREEN Tang 06/14/24 17:01:
Spoke with Bridgette at outpatient home infusion who asked that patient get one more dose inpatient tomorrow prior to discharge. RN updated.
Original Note:
Reviewed chart, spoke with patient with RN who could translate. Let patient and his spouse who was at bedside know, that patient will be going to outpatient infusion for his ABX. Received script through TT from ID for Daptomycin 720 mg IV 24hrs.
They expressed understanding.
Placed a call to outpatient infusion and spoke with Bridgette who stated that she has script she just needs to know when patient is being discharged. Will update.
Plan: Case management will continue to follow and assist with discharge planning. Home with outpatient
[2024-06-14 15:21] VITALS: BP 121/80
--- NOTE | 2024-06-14 15:51 | W.DCSUMMARY ---
Discharge Summary
Discharge Data
Date of Admission: 06/06/24
Date of Discharge: 06/15/24
-
Pending Results: No
Hospital Course
Patient 58 years old male with no significant past medical history other than heavy alcohol use disorder came into the hospital with abdominal pain and fevers and chills. Patient was found to have evidence of cirrhosis. Unclear if alcohol related
cirrhosis or GUZMAN related. He did have evidence of alcohol withdrawal that required transfer to ICU and he was placed on Precedex drip, benzodiazepines, and phenobarbital. He completed a tapering course of phenobarbital. His alcohol withdrawal
resolved and patient is back to his baseline. His labs were consistent with cirrhosis. Viral hepatitis negative. He had pancytopenia, hypoalbuminemia, and gallstones. He had no ascites that required paracentesis. GI consulted and recommended
follow-up with kiss mixer as outpatient and an outpatient referral to hepatology at [facility] has been made for 06/27/2024.
Patient also had sepsis due to Staph aureus bacteremia. ID was consulted. Repeated blood cultures no growth and transthoracic echo no evidence of bacterial endocarditis. He was treated with different courses of IV antibiotics but ultimately
decided on IV daptomycin upon discharge to continue as outpatient for 2 more weeks. We will have a follow-up with ID as outpatient. Otherwise patient is hemodynamically stable and afebrile. He will be discharged in stable condition today.
Discharge duration: 35 minutes
Discharge Plan
-
Patient Disposition: Home with Home Care
Discharge Diagnosis/Procedures: Methicillin sensitive Staphylococcus bacteremia;
mild alcohol hepatitis with underlying liver cirrhosis;
alcohol withdrawal with delirium tremor
Condition: Fair
Diet: As tolerated, Low Fat and Low Cholesterol
Activity: As tolerated
Driving Restrictions: As prior to admission
Blood Work: Please PCP and ID to order CBC, BMP within 1 week
Referrals:
Primary care, provider [Other] (See less than 1 week)
Elysia Jimenez MD [Active] - in two to four weeks
Claribel Snell MD [Active] - in one to two weeks
Additional Discharge Medication Instructions: hepatology appt for outpatient care with Dr Cooper at [facility] this Thursday or 06/27
Prescriptions:
New
DAPTOmycin [Cubicin] 700 MG
Syringe [Syringe-Pump] 0 ML
As Directed mls/hr IV Q24H
Ordered By: Enrique Klein MD
Last Taken: 06/15/24 06:09 14 mls
Discharge Orders:
Discharge Patient (As Directed); Ordered 06/14/24
Ordered By: Enrique Klein
Discharge Date and Time
Print Language: UKRAINIAN
[2024-06-14 19:10] VITALS: BP 130/74
[2024-06-14 19:19] VITALS: BP 107/65
[2024-06-14 23:40] VITALS: BP 107/65
[2024-06-15 05:26] LABS: ALT (SGPT) 28 U/L (0-50); AST (SGOT) 113 U/L (17-59); Albumin 3.4 g/dl (3.5-5.0); Alkaline Phosphatase 263 U/L (38-126); Blood Urea Nitrogen 19 mg/dl (9-20); Carbon Dioxide 23 mmol/L (22-30); Chloride 105 mmol/L (98-107); Estimated Creatinine Clearance 91 ml/min; Glucose 108 mg/dl (70-99); Potassium 4.4 mmol/L (3.5-5.1); Sodium 139 mmol/L (135-145); eGFR > 60.00
[2024-06-15 05:33] LABS: % Eosinophils 5.2 % (0-6); % Immature Granulocytes 0.4 % (0-0.5); % Lymphocytes 17.2 % (20.5-51.1); % Monocytes 14.7 % (1.7-9.3); % Neutrophils 61.5 % (42.2-75.2); Absolute Basophils 0.1 10^3/uL (0-0.2); Absolute Eosinophils 0.3 10^3/uL (0-0.7); Absolute Lymphocytes 0.8 10^3/uL (1.2-3.4); Absolute Monocytes 0.7 10^3/uL (0.1-0.6); Hematocrit 36.3 % (39.0-52.0); Hemoglobin 11.9 g/dL (13.0-18.0); Mean Corp Hgb Conc. 32.8 g/dL (33.0-37.0); Mean Corpuscular Hgb 30.2 pg (27.0-31.0); Mean Corpuscular Volume 92.1 fL (80.0-94.0); Mean Platelet Volume 11.7 fL (7.4-10.4); Nucleated Red Blood Cells % 0 % (-); Platelet Count 121 10^3/uL (130-400); Red Blood Cell Count 3.94 10^6/uL (4.70-6.10); Red Cell Dist. Width 16.6 % (11.5-14.5); White Blood Cell Count 4.8 10^3/uL (4.8-10.8)
[2024-06-15] MEDS: CUBICIN 14 MG IV (06:09)
[2024-06-15 07:16] VITALS: BP 114/69
[2024-06-15] MEDS: VITAMIN B1 100 MG PO (08:02)
[2024-06-15] MEDS: PROTONIX 40 MG PO (08:02)
[2024-06-15] MEDS: FOLVITE 1 MG PO (08:02)
--- NOTE | 2024-06-15 08:58 | W.PN.HOSP.TC ---
Today's Communication/Plan
-
Discharge planning
Assessment / Plan
Assessment / Plan
Physical exam:
General: No acute distress
HEENT: Normocephalic, Atraumatic and Moist Mucous Membranes
Respiratory: Clear to Auscultation; Negative Wheezes, Rales or Rhonchi
Cardiac: Regular Rhythm and S1/S2
GI: Soft, Nontender and Nondistended
Musculoskeletal: No Clubbing, No Cyanosis and No Edema
Neuro: Awake, Alert and Oriented
Psych: Calm
A/P:
MSSA bacteremia:
On IV Daptomycin per ID.
Discussed with ID prior.
technical support manager for discharge disposition
Discussed with daughter at bedside today on 06/15
Discharge planning today.
Liver cirrhosis:
Alcohol abstinence
GI consult appreciated
Referral to agitator operator as outpatient
Alcohol withdrawal:
Stable
Required Precedex drip and phenobarbital taper-just finished course of phenobarbital. On benzos as needed but has not required.
Pancytopenia:
Liver cirrhosis and splenic sequestration related
Monitor
DVT prophylaxis:
SCDs
No pharmacological prophylaxis due to thrombocytopenia
CODE STATUS:
Full code
Anticipated Discharge: Today
Subjective/Interval History
-
Date of Service: June 15, 2024
Patient doing well today. No new complaint
Objective Data
-
Labs:
Laboratory Results
06/15/24
04:51
WBC 4.8
Hgb 11.9 L
Hct 36.3 L
Plt Count 121 L
PT 15.0 H
INR 1.20
Sodium 139
Potassium 4.4
Chloride 105
Carbon Dioxide 23
BUN 19
Creatinine 0.9
Glucose 108 H
Calcium 9.0
Total Bilirubin 2.0 H
AST 113 H
ALT 28
Alkaline Phosphatase 263 H
Vital Signs:
Vital Signs
Temp Pulse Resp BP Pulse Ox
99.1 F 80 17 114/69 97
06/15/24 07:16 06/15/24 07:16 06/15/24 07:16 06/15/24 07:16 06/15/24 07:16
I&O
06/14/24 06/15/24 06/16/24
06:59 06:59 06:59
Intake Total 1050 / 1050 960 / 960
Balance 1050 / 1050 960 / 960
--- NOTE | 2024-06-15 09:22 | CM ---
Addendum entered by DOREEN Tang 06/15/24 11:57:
Spoke with Karla in [facility] who stated that patient's infusion time is 9:15am.
Addendum entered by DOREEN Tang 06/15/24 11:41:
Placed a call to [facility] however the number provided was incorrect. The number is [phone]
Will provide to patient for f/u medical care. Spoke with attending who stated that patient will be discharged on no further medications.
Addendum entered by DOREEN Tang 06/15/24 10:03:
Placed a call to [facility] and was advised that as patient is not a resident he will need to go to the [facility] [phone]. There he will have access to the medical care he needs. Will provide phone number to patient.
Spoke with Tiffany camilo from [facility] who stated that once patient gets established at [facility] and secures an MD, they can see him.
Will update patient.
Original Note:
Placed a call to Emilia from [facility] to determine MA status as patient will need to f/u outpatient with with area providers as he plans on staying with his daughter in [place] and [place]. Emilia answered and requested that all of
patient's information be left on her voice mail as she was driving in to work and will need to look him up to determine status.
Placed another call to Emilia and on voice mail left information for her to be able to look patient up. Will await return call from her.
Plan: Case management will continue to follow and assist with discharge planning. Home with his daughter, follow up with [facility] for IV ABX. [facility] status and update patient. Will provide an application for [facility].
--- NOTE | 2024-06-15 15:51 | W.PN.ID1 ---
Date of Service
Date of Service: June 15, 2024
Today's Communication
- will go to the infusion center to complete the two week course of IV antibiotis from 06/07-06/20
- switched to daptomycin for ease of dosing - script sent to rn field case manager
stable for dc from ID perspective when outpatient IV antibiotics set up
Assessment / Plan
A&P
S aureus Bacteremia
Cirrhosis
Class III obesity
- one of two sets from 06/06: s aureus
- blood cultures x2 06/07 finalized negative
- TTE - no vegetation
- will go to the infusion center to complete the two week course of IV antibiotis from 06/07-06/20
- switched to daptomycin for ease of dosing - script sent to rn field case manager
stable for dc from ID perspective when outpatient IV antibiotics set up
AW
Chief Complaint
-: Bacteremia
Subjective / Review of Systems
afebrile
no events overnight
tolerating current therapies
Vital Signs / Physical Exam
Vital Signs
Vital Signs
Temp Pulse Resp BP Pulse Ox
99.1 F 80 17 114/69 97
06/15/24 07:16 06/15/24 07:16 06/15/24 07:16 06/15/24 07:16 06/15/24 07:16
Physical Exam
Constitutional: No Acute Distress
Cardiovascular: Regular Rate
Pulmonary: Symmetric and Non Labored
Gastrointestinal: Non Distended
Neurological: Awake
Objective Data
Lab Data
Lab Results
06/15/24 04:51
06/15/24 04:51
PT 15.0 Sec (11.4-14.6) H 06/15/24 04:51
INR 1.20 06/15/24 04:51
Estimated Creat Clear 91 ml/min 06/15/24 04:51
Lactic Acid Cancelled 06/06/24 15:45
Total Bilirubin 2.0 mg/dl (0.2-1.3) H 06/15/24 04:51
AST 113 U/L (17-59) H 06/15/24 04:51
ALT 28 U/L (0-50) 06/15/24 04:51
Alkaline Phosphatase 263 U/L (38-126) H 06/15/24 04:51
C-Reactive Protein 9.60 mg/L (0.0-10.00) 06/06/24 12:08
Most recent labs reviewed.
Micro Results:
06/06/24 17:31 Blood Culture - Final
Blood/Venous S aureus-Methicillin Sensitive
Gram Stain - Final
06/08/24 06:32 Blood Culture - Final
Blood/Venous No Growth - Final Report
06/07/24 12:11 Blood Culture - Final
Blood/Venous No Growth - Final Report
06/07/24 10:23 Blood Culture - Final
Blood/Venous No Growth - Final Report
06/06/24 17:31 Blood Culture - Final
Blood/Venous No Growth - Final Report
06/06/24 12:08 Influenza Types A & B (STEFANIE) - Final
Nasal Swab Negative for Influenza A & B, NAAT
Negative results must be combined with clinical observations
and patient history.
Nucleic Acid Amplification test (NAAT)performed on the
[employer] platform.
Labs-
06/06/2024-
WBC-2.4, hemoglobin-10.9, creatinine 1.0, total bilirubin-3.6, direct bilirubin-2.2, INR-1.3, AST-120, ALT-43, alkaline phosphatase-185, lipase-211.
Lactic acid-1.3.
06/10/2024-platelet count-67.
Total bilirubin-3.2, AST-1202 ALT-43, ALP-161, LDH-336.
Diagnostic imaging-
Echocardiography-06/08/2024-
Normal left ventricular chamber size. Normal left ventricular systolic
function. Left ventricular ejection fraction is 60-65%. Normal regional wall
motion. Mild concentric left ventricular hypertrophy. Normal diastolic
function.
No significant valvular disease.
No evidence of vegetation, could consider LIAT if clinically indicated.
MRI abdomen and pelvis-
06/07/2024-
Cirrhotic morphology with evidence of portal hypertension including recanalization of the umbilical vein and splenomegaly. No suspicious arterially hyperenhancing lesions within the liver. No significant ascites. Recommend continued surveillance
with either ultrasound or multiphasic CT/MRI.
Cholelithiasis without evidence of choledocholithiasis. The common bile duct measures 4 mm.
There is a 1.1 cm enhancing focus along the posterior/superior wall of the body of the gallbladder, likely a polyp.
9 mm cyst with thin internal septation in the lower pole the left kidney consistent with Bosniak II.
Trace bilateral pleural effusions.
Abdominal ultrasound-06/06/24-
Gallstones. No secondary findings to suggest acute cholecystitis.
Moderate splenomegaly.
Nonvisualization of proximal IVC and abdominal aorta.
== END 2024-06-15 14:16 | disposition home health service (06) | DRG 432 ==
LOC: 3 WEST ACU 17:52
PROVIDERS: Nurse Practitioner Adult Health; Nurse Practitioner Gerontology; Physician Assistant Medical; ADMITTING PHYSICIAN Internal Medicine; ATTENDING PHYSICIAN Hospitalist; CONSULT PHYSICIAN Internal Medicine Critical Care Medicine; CONSULT PHYSICIAN Internal Medicine Gastroenterology; CONSULT PHYSICIAN Surgery; EMERGENCY PHYSICIAN Emergency Medicine; OTHER PHYSICIAN Student in an Organized Health Care Education/Training Program
DX: K70.10 Alcoholic hepatitis without ascites (principal); A41.01 Sepsis due to Methicillin susceptible Staphylococcus aureus; Z68.42 Body mass index [BMI] 45.0-49.9, adult; K76.6 Portal hypertension; D61.818 Other pancytopenia; F10.131 Alcohol abuse with withdrawal delirium; I85.10 Secondary esophageal varices without bleeding; E66.01 Morbid (severe) obesity due to excess calories; K70.30 Alcoholic cirrhosis of liver without ascites; E88.09 Other disorders of plasma-protein metabolism, not elsewhere classified; E87.6 Hypokalemia; G47.33 Obstructive sleep apnea (adult) (pediatric); K80.20 Calculus of gallbladder without cholecystitis without obstruction; Y90.0 Blood alcohol level of less than 20 mg/100 ml; Z87.891 Personal history of nicotine dependence; Z11.52 Encounter for screening for COVID-19
CPT/HCPCS: 71046; 74183; 76700; 80053; 80202; 80306; 81003; 81015; 82077; 82248; 82550; 82962; 83010; 83605; 83615; 83690; 83735; 84100; 84484; 85025; 85610; 86140; 86705; 86706; 86708; 86709; 86803; 87040; 87150; 87186; 87205; 87340; 87502; 87811; 93005; 93306; 96361; 96374; 99285; A9575; J0878

== ENCOUNTER 2024-06-20 09:44 | Outpatient (RCR) | payer MEDICAID, OTHER, SELFPAY ==
[2024-06-16 09:50] VITALS: BP 117/68
[2024-06-16] MEDS: CUBICIN 114 MG IV (10:04)
[2024-06-16 10:07] LABS: % Eosinophils 5.8 % (0-6); % Immature Granulocytes 0.4 % (0-0.5); % Lymphocytes 16.5 % (20.5-51.1); % Neutrophils 66.3 % (42.2-75.2); Absolute Basophils 0.1 10^3/uL (0-0.2); Absolute Eosinophils 0.3 10^3/uL (0-0.7); Absolute Lymphocytes 0.8 10^3/uL (1.2-3.4); Absolute Monocytes 0.5 10^3/uL (0.1-0.6); Absolute Neutrophils 3.2 10^3/uL (1.4-6.5); Hematocrit 37.1 % (39.0-52.0); Mean Corp Hgb Conc. 32.3 g/dL (33.0-37.0); Mean Corpuscular Hgb 30.2 pg (27.0-31.0); Mean Corpuscular Volume 93.5 fL (80.0-94.0); Mean Platelet Volume 10.3 fL (7.4-10.4); Platelet Count 130 10^3/uL (130-400); Red Blood Cell Count 3.97 10^6/uL (4.70-6.10); Red Cell Dist. Width 16.4 % (11.5-14.5); White Blood Cell Count 4.8 10^3/uL (4.8-10.8)
[2024-06-16 10:36] LABS: ALT (SGPT) 46 U/L (0-50); AST (SGOT) 203 U/L (17-59); Albumin 3.4 g/dl (3.5-5.0); Alkaline Phosphatase 232 U/L (38-126); Blood Urea Nitrogen 16 mg/dl (9-20); Calcium 9.2 mg/dl (8.4-10.2); Carbon Dioxide 25 mmol/L (22-30); Chloride 105 mmol/L (98-107); Creatine Phosphokinase 46 U/L (55-170); Glucose 99 mg/dl (70-99); Potassium 4.1 mmol/L (3.5-5.1); Sodium 139 mmol/L (135-145); Total Bilirubin 2.8 mg/dl (0.2-1.3); Total Protein 7.1 g/dl (6.3-8.2); eGFR > 60.00
[2024-06-17 10:07] VITALS: BP 118/81
[2024-06-17] MEDS: CUBICIN 114 MG IV (10:18)
--- NOTE | 2024-06-17 11:59 | W.PN.UPDATE ---
Update Note
- Progress Note Update
06/17/24 11:59
Patient seen at bedside after infusion completed at request of COLUMBA RN due to concerning rash on forearms and lower back. Evaluated patient with family at bedside through translation fracisco. Patient reports rash/irritation to area on arms has been
stable for some time and was related to adhesive from IVs previously. Appearance on right is irregular areas of erythema non covering most of the antecubital area and about 5cm above and below the antecub area. On the left the irriation/rash is
similar in pattern but is seen in upper arm near the current midline site. Non pruritic. He also is with back erythema to right and left lower back which corresponds with areas he itches routinely and this is stable. Area on back does not appear
rash like but rather erythema from itching. Advised to watch and if worsens to report to prescribing MD. Family has contact information for covering MD. They know to come to the ER tomorrow am and thursday am. Educated on s/s of reaction including
worsening rash, pain, shortness of breath, chest pain, etc. Patient was recently switched to daptomycin on 06/14. Labs reviewed from 06/16 and results are essentially stable with exception of bilirubin which is up slightly from 2.0 to 2.8 but has
been as high as 3.6 on admission. CK stable. Will try benadryl to see if improves. ID to be informed.
06/17/24 12:18
06/17/24 12:21
[2024-06-18] MEDS: CUBICIN 114 MG IV (08:13)
[2024-06-18 08:16] VITALS: BP 119/77
[2024-06-19] MEDS: CUBICIN 114 MG IV (07:55)
[2024-06-19 07:59] VITALS: BP 117/79
[2024-06-20 09:59] VITALS: BP 123/70
[2024-06-20] MEDS: CUBICIN 114 MG IV (10:05)
== END 2024-06-20 13:47 | disposition home or self-care (01) ==
LOC: OID 09:44
PROVIDERS: ATTENDING PHYSICIAN Student in an Organized Health Care Education/Training Program
DX: R78.81 Bacteremia (principal); F10.131 Alcohol abuse with withdrawal delirium; K72.90 Hepatic failure, unspecified without coma; R16.1 Splenomegaly, not elsewhere classified; D61.818 Other pancytopenia; I85.00 Esophageal varices without bleeding; K76.6 Portal hypertension; K70.30 Alcoholic cirrhosis of liver without ascites
CPT/HCPCS: 36591; 80053; 82550; 85025; 96365; J0878

== ENCOUNTER → 2024-07-07 13:19 | Outpatient (REF) | payer MEDICAID, OTHER, SELFPAY ==
[2024-07-07 15:38] LABS: % Basophils 0.6 % (0-2); % Eosinophils 8.3 % (0-6); % Immature Granulocytes 0.4 % (0-0.5); % Lymphocytes 19.7 % (20.5-51.1); % Monocytes 7.6 % (1.7-9.3); % Neutrophils 63.4 % (42.2-75.2); Absolute Eosinophils 0.4 10^3/uL (0-0.7); Absolute Lymphocytes 0.9 10^3/uL (1.2-3.4); Absolute Monocytes 0.4 10^3/uL (0.1-0.6); Hematocrit 36.7 % (39.0-52.0); Hemoglobin 12.2 g/dL (13.0-18.0); Mean Corp Hgb Conc. 33.2 g/dL (33.0-37.0); Mean Corpuscular Hgb 30.9 pg (27.0-31.0); Mean Corpuscular Volume 92.9 fL (80.0-94.0); Nucleated Red Blood Cells % 0 % (-); Platelet Count 117 10^3/uL (130-400); Red Blood Cell Count 3.95 10^6/uL (4.70-6.10); Red Cell Dist. Width 16.2 % (11.5-14.5); White Blood Cell Count 4.7 10^3/uL (4.8-10.8)
[2024-07-07 15:44] LABS: INR 1.14; PT 15.1 Sec (11.4-14.6)
[2024-07-07 15:46] LABS: APTT 30.7 Sec (23.4-35.0)
[2024-07-07 15:52] LABS: IgA 782 mg/dl (70-400); IgG 1846 mg/dl (700-1600); IgM 181 mg/dl (40-230)
[2024-07-07 16:10] LABS: ALT (SGPT) 54 U/L (0-50); AST (SGOT) 118 U/L (17-59); Albumin 3.6 g/dl (3.5-5.0); Alkaline Phosphatase 275 U/L (38-126); Blood Urea Nitrogen 16 mg/dl (9-20); Calcium 9.2 mg/dl (8.4-10.2); Carbon Dioxide 24 mmol/L (22-30); GGTP 723 U/L (15-73); Glucose 88 mg/dl (70-99); Iron 133 ug/dl (49-181); Total Bilirubin 2.3 mg/dl (0.2-1.3); Total Protein 7.4 g/dl (6.3-8.2); eGFR > 60.00
[2024-07-07 16:17] LABS: Ferritin 46.2 ng/ml (17.9-464.0)
[2024-07-07 16:20] LABS: Percent Saturation 36 % (20-50); Total Iron Binding Capacity 361 ug/dl (261-462)
[2024-07-07 16:25] LABS: Chloride 105 mmol/L (98-107); Potassium 3.9 mmol/L (3.5-5.1); Sodium 141 mmol/L (135-145)
[2024-07-07 18:24] LABS: AFP Male/Tumor Marker 2.48 ng/ml
[2024-07-10 08:08] LABS: F-Actin Antibody IgG 9 Units (0-19); Mitochondrial M2 Ab, IgG 8.2 Units (0.0-24.9)
[2024-07-10 08:35] LABS: ANA, IgG Reflex to HEp-2 None Detected (None Detected)
== END ==
LOC: REG 13:19
PROVIDERS: ATTENDING PHYSICIAN Physician Assistant
DX: K74.60 Unspecified cirrhosis of liver (principal); K70.30 Alcoholic cirrhosis of liver without ascites
CPT/HCPCS: 36415; 80053; 82105; 82728; 82784; 82977; 83540; 83550; 85025; 85610; 85730; 86015; 86038; 86381

== ENCOUNTER → 2024-09-23 07:08 | Outpatient (REF) | payer OTHER, SELFPAY ==
[2024-09-23 08:33] LABS: INR 1.22; PT 15.7 Sec (11.4-14.6)
[2024-09-23 08:34] LABS: APTT 28.8 Sec (23.4-35.0)
[2024-09-23 08:40] LABS: Urine Albumin 2+ (Neg - Trace); Urine Bilirubin Negative (Negative); Urine Character Clear (Clear); Urine Color Yellow; Urine Glucose Negative (Negative); Urine Ketone Negative (Negative); Urine Leukocyte Negative (Negative); Urine Nitrite Negative (Negative); Urine Occult Blood 4+ (Negative); Urine Urobilinogen Negative (Neg - 1+)
[2024-09-23 08:45] LABS: % Basophils 0.7 % (0-2); % Eosinophils 7.3 % (0-6); % Lymphocytes 29.1 % (20.5-51.1); % Monocytes 12.3 % (1.7-9.3); % Neutrophils 50.6 % (42.2-75.2); Absolute Eosinophils 0.2 10^3/uL (0-0.7); Absolute Lymphocytes 0.9 10^3/uL (1.2-3.4); Absolute Monocytes 0.4 10^3/uL (0.1-0.6); Absolute Neutrophils 1.5 10^3/uL (1.4-6.5); Hematocrit 34.7 % (39.0-52.0); Hemoglobin 11.8 g/dL (13.0-18.0); Mean Corpuscular Hgb 32.2 pg (27.0-31.0); Mean Corpuscular Volume 94.8 fL (80.0-94.0); Mean Platelet Volume 10.4 fL (7.4-10.4); Nucleated Red Blood Cells % 0 % (-); Platelet Count 88 10^3/uL (130-400); Red Blood Cell Count 3.66 10^6/uL (4.70-6.10); Red Cell Dist. Width 13.7 % (11.5-14.5); Reticulocyte Count 2.5 % (0.4-2.8)
[2024-09-23 08:47] LABS: ALT (SGPT) 40 U/L (0-50); AST (SGOT) 68 U/L (17-59); Albumin 3.8 g/dl (3.5-5.0); Alkaline Phosphatase 199 U/L (38-126); Blood Urea Nitrogen 21 mg/dl (9-20); Calcium 9.3 mg/dl (8.4-10.2); Carbon Dioxide 22 mmol/L (22-30); Chloride 108 mmol/L (98-107); Direct Bilirubin 0.4 mg/dl (0.0-0.4); Glucose 97 mg/dl (70-99); Potassium 3.8 mmol/L (3.5-5.1); Sodium 139 mmol/L (135-145); Total Bilirubin 1.4 mg/dl (0.2-1.3); Total Protein 7.3 g/dl (6.3-8.2); eGFR > 60.00
[2024-09-23 09:18] LABS: TSH Reflex To Free T4 3.11 uIU/ml (0.47-4.68)
[2024-09-23 10:05] LABS: Glycohemoglobin (HgbA1c) 4.4 % (4.0-5.6)
[2024-09-23 10:09] LABS: Urine Amorphous Seen; Urine Mucus Few
[2024-09-23 10:10] LABS: Urine Red Blood Cell 21-25 /HPF (0-2)
[2024-09-23 10:12] LABS: Urine White Cell 0-2 /HPF (0-5)
== END ==
LOC: CLINIC 07:08
PROVIDERS: ATTENDING PHYSICIAN Internal Medicine
DX: K70.30 Alcoholic cirrhosis of liver without ascites (principal)
CPT/HCPCS: 36415; 80053; 81003; 81015; 82248; 83036; 84443; 85025; 85045; 85610; 85730

== ENCOUNTER 2024-10-21 06:34 | Day surgery (SDC) | payer OTHER, SELFPAY | END 2024-10-21 15:11 | disposition home or self-care (01) | LOC: GI 06:34 | PROVIDERS: ATTENDING PHYSICIAN Internal Medicine Gastroenterology | DX: K31.89 Other diseases of stomach and duodenum (principal); K76.6 Portal hypertension; K74.60 Unspecified cirrhosis of liver; I85.10 Secondary esophageal varices without bleeding | CPT/HCPCS: 43235 ==